=== PATIENT | male | born 1945 | race Hispanic/Latino ===

== ENCOUNTER 2018-04-13 09:22 | Emergency (ER) | payer OTHER ==
--- OUTSIDE RECORDS SUMMARY | 2018-04-13 09:24 | XMS REPORT | Clinical Summary ---
:1945 Author Organization [facility] Address [address] [place] [address] Care Team Providers Name Role Phone Malou Aragon MD Primary Care Provider Allergies Active Allergy Reactions Severity Noted Date Comments Latex Dermatitis, Itching, Rash Low Medications Medication Sig Dispensed Refills Start Date End Date Status clopidogrel (PLAVIX) Take 75 mg by 0 Active 75 mg tablet mouth daily. carvedilol (COREG) Take 1 tablet 0 Active 12.5 MG tablet by mouth daily. irbesartan (AVAPRO) Take 1 tablet 0 01/15/2018 Active 75 MG tablet by mouth daily. simvastatin (ZOCOR) Take 40 mg by 0 Active 40 MG tablet mouth daily. omega-3 fatty Take 1 capsule 0 Active acids-epa 1 gram by mouth 2 capsule (two) times a day. ferrous sulfate 325 Take 325 mg by 0 Active (65 FE) MG tablet mouth daily. cyanocobalamin Take 1 tablet 0 Active (cyanocobalmin) 100 by mouth MCG tablet daily. levothyroxine Take 1 tablet 0 Active (SYNTHROID, LEVOXYL) by mouth 88 mcg tablet daily. aspirin (ECOTRIN) 81 Take 81 mg by 0 Active MG enteric coated mouth daily. tablet pantoprazole Take 1 tablet 90 tablet 0 02/10/2018 Active (PROTONIX) 40 MG EC (40 mg total) tabletIndications: by mouth GERD with daily. esophagitis diclofenac sodium 3 Apply 1-2 100 g 1 02/20/2018 Active % gel grams to affected areas two times daily diclofenac sodium 3 Apply 1-2 100 g 1 02/20/2018 Discontinued % gel grams to 8 affected areas two times daily Active Problems No known active problems Encounters Date Type Specialty Care Team Description 03/24/2018 Office Visit Family Medicine Malou Aragon Essential hypertension (Primary Dx); MD Deepa Chronic kidney disease (CKD) stage G3b/A1, moderately decreased glomerular filtration rate (GFR) between 30-44 mL/min/1.73 square meter and albuminuria creatinine ratio less than 30 mg/g (HCC); Hyperuricemia; Acquired hypothyroidism; Screening for colon cancer; Urinary hesitancy; Hyperglycemia; At high risk for osteoporosis 02/10/2018 Office Visit Family Medicine Malou Aragon Coronary artery disease due to lipid rich plaque (Primary Dx); MD Deepa Essential hypertension; Dyslipidemia (high LDL; low HDL); Acquired hypothyroidism; CKD (chronic kidney disease) stage 3, GFR 30-59 ml/min (HCC); GERD with esophagitis; Primary osteoarthritis of left knee after 04/12/2017 Family History Medical History Relation Name Comments Stroke Brother Heart disease Father Stroke Father Heart disease Mother Kidney disease Sister Relation Name Status Comments Brother Father Mother Sister Social History Tobacco Use Types Packs/Day Years Used Date Former Smoker 1 10 Smokeless Tobacco: Never Used Comments: stopped 30 years ago Alcohol Use Drinks/Week oz/Week Comments No Sex Assigned at Date Recorded Not on file Job Start Date Occupation Industry Not on file Not on file Not on file Travel History Travel Start Travel End No recent travel history available. Last Filed Vital Signs Vital Sign Reading Time Taken Blood Pressure 160/71 03/24/2018 9:48 AM [employer] Pulse 61 03/24/2018 9:48 AM [employer] Temperature 36.6 C (97.9 F) 03/24/2018 9:48 AM [employer] Respiratory Rate - - Oxygen Saturation 96% 03/24/2018 9:48 AM [employer] Inhaled Oxygen Concentration - - Weight 82.7 kg (182 lb 4.8 oz) 03/24/2018 9:48 AM [employer] Height 154.9 cm (5' 1") 03/24/2018 9:48 AM [employer] Body Mass Index 34.45 03/24/2018 9:48 AM [employer] Plan of Treatment Date Type Specialty Care Team Description 04/18/2018 Appointment Radiology Malou Aragon MD [address] [place] [address] [id number] 06/23/2018 Office Visit Family Medicine Malou Aragon MD [address] [place] [phone] Health Maintenance Due Date Last Done Comments SHINGLES VACCINES (1 of 2) 1995 COLON CANCER SCREENING 02/11/2028 Postponed from 1995 (Patient Refused) PNEUMOCOCCAL POLYSACCHARIDE Completed 02/21/2016 VACCINE AGE 65 AND OVER INFLUENZA VACCINE Completed 01/25/2018 PNEUMOCOCCAL-13 Completed 01/25/2018 Procedures Procedure Name Priority Date/Time Associated Diagnosis Comments HEMOGLOBIN A1C Routine 03/24/2018 10:59 Hyperglycemia Results for this AM [employer] procedure are in the results section. TSH REFLEX TO T4F Routine 03/24/2018 10:59 Acquired Results for this AM [employer] hypothyroidism procedure are in the results section. PSA, TOTAL WITH Routine 03/24/2018 10:59 Urinary hesitancy Results for this REFLEX TO FREE AM [employer] procedure are in the results section. after 04/12/2017 Results TSH reflex to T4 (03/24/2018 10:59 AM [employer]) TSH reflex to FT4 1.80 0.40 - 4.50 mIU/L [facility] [place] Specimen Blood Narrative Performed At FASTING:NO QUEST FASTING: NO Resulting Agency Comment Performing Organization Information: Site ID: [id number] Name[facility] Address: [address] [place] [address] Director: Sunshine Irizarry Performing Organization Address City/State/Zipcode Phone Number [employer] [place] [phone] PSA, total with reflex to free (03/24/2018 10:59 AM [employer]) PSA 1.0 < OR=4.0 ng/mL [facility] Comment: The Total PSA value from this assay system is standardized against the equimolar PSA standard. The test result will be approximately 20% higher when compared to the WHO-standardized Total PSA (Siemens assay). Comparison of serial PSA results should be interpreted with this fact in mind. PSA was performed using the Deirdre Pavan Immunoassay method. Values obtained from different assay methods cannot be used interchangeably. PSA levels, regardless of value, should not be interpreted as absolute evidence of the presence or absence of disease. Specimen Blood Narrative Performed At FASTING:NO QUEST FASTING: NO Resulting Agency Comment Performing Organization Information: Site ID: [id number] Name: [facility] Address: [address] [place] [address] Director: Dr. Jonathan Alcantar Performing Organization Address City/[facility]/Zipcode Phone Number TH[facility] [address] [address] Hemoglobin A1c (03/24/2018 10:59 AM [employer]) Hemoglobin A1C 7.2 (H) <5.7 % of total [facility] Comment: [facility] [place] For someone without known diabetes, a hemoglobin A1c value of 6.5% or greater indicates that they may have diabetes and this should be confirmed with a follow-up test. For someone with known diabetes, a value <7% indicates that their diabetes is well controlled and a value greater than or equal to 7% indicates suboptimal control. A1c targets should be individualized based on duration of diabetes, age, comorbid conditions, and other considerations. Currently, no consensus exists regarding use of hemoglobin A1c for diagnosis of diabetes for children. Specimen Blood Narrative Performed At FASTING:NO QUEST FASTING: NO Resulting Agency Comment Performing Organization Information: Site ID: [id number] Name: [facility] Address: [address] [place] [address] Director: Sunshine Irizarry Performing Organization Address City/[facility]/Zipcode Phone Number [employer] [place] [address] [place] [address] after 04/12/2017 Insurance Payer Benefit Plan / Group Subscriber ID Type Phone Address AETNA MEDICARE AETNA MEDICARE HMO/PPO [facility] [address] (Home) [address] [place] [id number] Advance Directives Patient has advance care planning documents on file. For more information, please contact:[place] [address]
[2018-04-13] MEDS ORDERED: HYDROCODONE/APAP 7.5/325 MG TAB ONE (09:52)
--- NOTE | 2018-04-13 10:40 | EDPHYS ---
Physician Documentation [facility] Name: Murray Matos Jr Age: 72 yrs Sex: Male : 1945 Arrival Date: 04/13/2018 Time: 09:25 Bed 5 Private MD: out of town, doctor ED Physician Franklin Villafana HPI: 04/13 09:45 This 72 yrs old Male presents to ER via Ambulatory with complaints of Wrist cp Pain. 09:45 The patient or guardian reports pain, swelling, tenderness. The complaints affect the cp right wrist diffusely. 09:45 Context: resulted from an unknown cause. cp 09:45 Onset: The symptoms/episode began/occurred 3 day(s) ago. cp 09:45 Associated signs and symptoms: Pertinent negatives: cyanosis distally, decreased cp sensation distally, fever, injury. yes, reports xrays were taken and he was given steroids and pain medications. Patient reports history of gout. Historical: - Allergies: 09:29 Latex, Natural Rubber; la1 - Home Meds: 09:50 aspirin 81 mg Oral tab [Active]; carvedilol 12.5 mg Oral tab [Active]; clopidogrel 75 hj mg Oral tab [Active]; ferrous sulfate 325 mg (65 mg iron) Oral tab [Active]; irbesartan 300 mg Oral tab [Active]; Lasix 40 mg Oral tab [Active]; levothyroxine 88 mcg tab [Active]; Gifford-3 Oral [Active]; simvastatin 40 mg Oral tab [Active]; Vitamin B-12 1,000 mcg Oral tab [Active]; - PMHx: 09:29 Arthritis; heart attack; Hyperlipidemia; Hypertension; Hypothyroidism; iron deficiency; la1 Renal Disease; - PSHx: 09:50 CABG; Cholecystectomy; Knee surgery; hj - Immunization history:: Adult Immunizations up to date. - Social history:: Smoking status: Patient/guardian denies using tobacco. - Ebola Screening: : No symptoms or risks identified at this time. ROS: 09:50 Constitutional: Negative for body aches, chills, fever, poor PO intake. cp 09:50 Eyes: Negative for injury, pain, redness, and discharge. cp 09:50 ENT: Negative for drainage from ear(s), ear pain, sore throat, difficulty swallowing, difficulty handling secretions. 09:50 Cardiovascular: Negative for chest pain, palpitations. 09:50 Respiratory: Negative for cough, shortness of breath, wheezing. 09:50 Abdomen/GI: Negative for abdominal pain, nausea, vomiting, and diarrhea. 09:50 MS/extremity: Positive for pain, swelling, tenderness, of the right wrist, Negative for decreased range of motion, deformity, paresthesias. 09:50 Skin: Negative for cellulitis, erythema, rash. 09:50 All other systems are negative. Exam: 09:57 Constitutional: The patient appears in no acute distress, alert, awake, cp non-diaphoretic, non-toxic, well developed, well nourished. 09:57 Head/Face: Normocephalic, atraumatic. cp 09:57 Eyes: Periorbital structures: appear normal, Conjunctiva: normal, no exudate, no injection, Lids and lashes: appear normal, bilaterally. 09:57 ENT: External ear(s): are unremarkable, Nose: is normal, Mouth: Lips: moist, Oral mucosa: moist, Posterior pharynx: Airway: no evidence of obstruction, patent. 09:57 Chest/axilla: Inspection: normal. 09:57 Cardiovascular: Rate: normal. 09:57 Respiratory: the patient does not display signs of respiratory distress, Respirations: normal, no use of accessory muscles, no retractions, no splinting, no tachypnea. 09:57 Musculoskeletal/extremity: Extremities: grossly normal except: noted in the right wrist and dorsum of right hand: pain, swelling, tenderness, There is no evidence of deformity, ROM: limited passive range of motion due to pain, in the right wrist, Perfusion: the extremity is normally perfused throughout, Sensation intact. 09:57 Skin: cellulitis, is not appreciated, no rash present. Vital Signs: 09:30 Pulse 75; Resp 18; Temp 98.4; Pulse Ox 96% on R/A; Weight 81.19 kg; Height 5 ft. 2 in. la1 (157.48 cm); 09:31 BP 167 / 77; la1 10:44 BP 165 / 78; Pulse 76; Resp 18; Pulse Ox 97% on R/A; hj 09:30 Body Mass Index 32.74 (81.19 kg, 157.48 cm) la1 MDM: 09:32 Patient medically screened. cp 09:40 Differential diagnosis: closed fracture, cellulitis, gouty arthritis. cp 10:40 Data reviewed: vital signs, nurses notes, radiologic studies, plain films. cp 10:40 Test interpretation: by ED physician or midlevel provider: plain radiologic studies. 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 Response to treatment: the patient's symptoms have markedly improved after treatment, and as a result, I will discharge patient. 04/13 09:40 Order name: XRAY Wrist RIGHT 3 view cp Administered Medications: 09:40 Drug: Hydrocodone-Acetaminophen (7.5 mg-325 mg) 1 tabs Route: PO; hj 10:44 Follow up: Response: No adverse reaction; Pain is decreased hj Disposition: 04/13/18 10:40 Discharged to Home. Impression: Pain in right wrist. - Condition is Stable. - Discharge Instructions: Wrist Pain. - Prescriptions for Tylenol- Codeine #3 300-30 mg Oral Tablet - take 2 tablets by ORAL route every 6 hours As needed; 20 tablet. Medrol (Nick) 4 mg Oral Tablets, Dose Pack - take 1 tablet by ORAL route as directed - follow package instructions; 1 packet. - Medication Reconciliation Form, Thank You Letter, Antibiotic Education, Prescription Opioid Use form. - Follow up: Private Physician; When: 2 - 3 days; Reason: Recheck today's complaints. - Problem is new. - Symptoms have improved. Addendum: 04/24/2018 15:24 Co-signature as Attending Physician, Franklin Villafana MD Available for consultation at p s1 all times. . Signatures: Dispatcher [employer] EDMS Roman Chmabers RN RN la1 Boni Carmen RN RN hj Giovanni Saunders PA PA cp Singer, Phillip, MD MD ps1 Corrections: (The following items were deleted from the chart) 04/13 10:47 10:40 04/13/2018 10:40 Discharged to Home. Impression: Pain in right wrist. Condition hj is Stable. Forms are Medication Reconciliation Form, Thank You Letter, Antibiotic Education, Prescription Opioid Use. Follow up: Private Physician; When: 2 - 3 days; Reason: Recheck today's complaints. Problem is new. Symptoms have improved. cp
--- NOTE | 2018-04-13 10:40 | ER ---
Nurse's Notes [facility] Name: Murray Matos Jr Age: 72 yrs Sex: Male : 1945 Arrival Date: 04/13/2018 Time: 09:25 Bed 5 Private MD: out of town, doctor Diagnosis: Pain in right wrist Presentation: 04/13 09:27 Presenting complaint: Patient states: right wrist is swollen and painful, has been like la1 this for about 3 days. This happened before and they did an xray and they gave him some steroids and they helped. Transition of care: patient was not received from another setting of care. Onset of symptoms was April 13, 2018. Risk Assessment: Do you want to hurt yourself or someone else? Patient reports no desire to harm self or others. Initial Sepsis Screen: Does the patient meet any 2 criteria? No. Patient's initial sepsis screen is negative. Does the patient have a suspected source of infection? No. Patient's initial sepsis screen is negative. Care prior to arrival: None. 09:27 Method Of Arrival: Ambulatory la1 09:27 Acuity: WALDEMAR 4 la1 Triage Assessment: 09:46 General: Appears in no apparent distress. uncomfortable, Behavior is calm, cooperative, hj appropriate for age. Pain: Complains of pain in R wrist. Historical: - Allergies: 09:29 Latex, Natural Rubber; la1 - Home Meds: 09:50 aspirin 81 mg Oral tab [Active]; carvedilol 12.5 mg Oral tab [Active]; clopidogrel 75 hj mg Oral tab [Active]; ferrous sulfate 325 mg (65 mg iron) Oral tab [Active]; irbesartan 300 mg Oral tab [Active]; Lasix 40 mg Oral tab [Active]; levothyroxine 88 mcg tab [Active]; Mcgrath-3 Oral [Active]; simvastatin 40 mg Oral tab [Active]; Vitamin B-12 1,000 mcg Oral tab [Active]; - PMHx: 09:29 Arthritis; heart attack; Hyperlipidemia; Hypertension; Hypothyroidism; iron deficiency; la1 Renal Disease; - PSHx: 09:50 CABG; Cholecystectomy; Knee surgery; hj - Immunization history:: Adult Immunizations up to date. - Social history:: Smoking status: Patient/guardian denies using tobacco. - Ebola Screening: : No symptoms or risks identified at this time. Screenin:46 Abuse screen: Denies threats or abuse. Denies injuries from another. Nutritional hj screening: No deficits noted. Tuberculosis screening: No symptoms or risk factors identified. Fall Risk None identified. Assessment: 09:48 General: Appears in no apparent distress. uncomfortable, Behavior is calm, cooperative, hj appropriate for age. Pain: Complains of pain in R wrist. Neuro: Level of Consciousness is awake, alert, obeys commands, Oriented to person, place, time, situation, Appropriate for age. Cardiovascular: Capillary refill < 3 seconds Patient's skin is warm and dry. Respiratory: Airway is patent Respiratory effort is even, unlabored, Respiratory pattern is regular, symmetrical. GI: No signs and/or symptoms were reported involving the gastrointestinal system. : No signs and/or symptoms were reported regarding the genitourinary system. EENT: No signs and/or symptoms were reported regarding the EENT system. Derm: No signs and/or symptoms reported regarding the dermatologic system. Musculoskeletal: Reports pain in R wrist. Vital Signs: 09:30 Pulse 75; Resp 18; Temp 98.4; Pulse Ox 96% on R/A; Weight 81.19 kg; Height 5 ft. 2 in. la1 (157.48 cm); 09:31 BP 167 / 77; la1 10:44 BP 165 / 78; Pulse 76; Resp 18; Pulse Ox 97% on R/A; hj 09:30 Body Mass Index 32.74 (81.19 kg, 157.48 cm) la1 ED Course: 09:25 Patient arrived in ED. mr 09:26 out of town, doctor is Private Physician. mr 09:29 Triage completed. la1 09:29 Arm band placed on left wrist. la1 09:32 Giovanni Saunders PA is PHCP. cp 09:32 Franklin Villafana MD is Attending Physician. cp 09:37 Boni Carmen RN is Primary Nurse. hj 09:47 Patient has correct armband on for positive identification. Placed in gown. Bed in low hj position. Call light in reach. Side rails up X 1. 09:47 Bladder scan completed. prevoid- 219; voided- 200;. hj 09:51 X-ray completed. Portable x-ray completed in exam room. Patient tolerated procedure sg4 well. 09:54 XRAY Wrist RIGHT 3 view In Process Unspecified. EDMS 10:44 No provider procedures requiring assistance completed. Patient did not have IV access hj during this emergency room visit. Administered Medications: 09:40 Drug: Hydrocodone-Acetaminophen (7.5 mg-325 mg) 1 tabs Route: PO; hj 10:44 Follow up: Response: No adverse reaction; Pain is decreased hj Outcome: 10:40 Discharge ordered by . neida 10:45 Discharged to home ambulatory, with family. hj 10:45 Condition: stable 10:45 Discharge instructions given to patient, family, Instructed on discharge instructions, follow up and referral plans. medication usage, Demonstrated understanding of instructions, follow-up care, medications, Prescriptions given X 2. 10:47 Patient left the ED. Signatures: Dispatcher [employer] EDIL GarciaKayli ReyesRoman, RN RN la1 Boni Carmen RN RN Giovanni Quiñonez, Fanny May cp sg4
--- NOTE | 2018-04-13 12:10 | RAD REPORT ---
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 The radiocarpal joint and first carpometacarpal joint are most involved. Mild soft tissue swelling is seen. Vascular calcifica tion evident.
== END 2018-04-13 10:47 | disposition home or self-care (01) ==
LOC: ER 09:22
DX: M25.531 Pain in right wrist (principal); M19.031 Primary osteoarthritis, right wrist; M18.11 Unilateral primary osteoarthritis of first carpometacarpal joint, right hand; E78.5 Hyperlipidemia, unspecified; I10 Essential (primary) hypertension; E03.9 Hypothyroidism, unspecified; D50.9 Iron deficiency anemia, unspecified; Z79.82 Long term (current) use of aspirin; Z79.899 Other long term (current) drug therapy
CPT/HCPCS: 99283

== ENCOUNTER 2018-09-24 21:08 | Emergency (ER) | payer OTHER ==
--- NOTE | 2018-09-24 22:45 | ER ---
Nurse's Notes [facility] Name: Murray Matos Jr Age: 73 yrs Sex: Male : 1945 Arrival Date: 09/24/2018 Time: 21:10 Bed 27 Private MD: out of town, doctor Diagnosis: Laceration without foreign body of left index finger without damage to nail Presentation: 09/24 21:23 Presenting complaint: Patient states: I was working on my truck and a piece of metal ed1 slipped and cut my finger. Transition of care: patient was not received from another setting of care. Onset of symptoms was September 24, 2018. Risk Assessment: Do you want to hurt yourself or someone else? Patient reports no desire to harm self or others. Initial Sepsis Screen: Does the patient meet any 2 criteria? No. Patient's initial sepsis screen is negative. Does the patient have a suspected source of infection? No. Patient's initial sepsis screen is negative. Care prior to arrival: None. 21:23 Method Of Arrival: Ambulatory ed1 21:23 Acuity: WALDEMAR 4 ed1 Triage Assessment: 21:26 General: Appears in no apparent distress. Behavior is calm, cooperative. Pain: Denies ed1 pain. Injury Description: Laceration sustained to dorsal aspect of proximal phalanx of left index finger. Historical: - Allergies: 21:26 Latex, Natural Rubber; ed1 - Home Meds: 21:26 clopidogrel 75 mg Oral tab 1 tab once daily [Active]; carvedilol 12.5 mg Oral tab 1 tab ed1 2 times per day [Active]; valsartan 160 mg oral tab 1 tab once daily [Active]; aspirin 81 mg Oral tab 1 tab once daily [Active]; simvastatin 40 mg Oral tab 1 tab once daily [Active]; [place]-3 Oral twice a day [Active]; ferrous sulfate 325 mg (65 mg iron) Oral tab daily [Active]; levothyroxine 88 mcg tab 1 tab once daily [Active]; Vitamin B-12 1,000 mcg Oral tab daily [Active]; Trulicity 1.5 mg/0.5 mL subcutaneous pnij 0.5 mL once wkly [Active]; - PMHx: 21:26 Arthritis; heart attack; Hyperlipidemia; Hypertension; Hypothyroidism; iron deficiency; ed1 Renal Disease; - PSHx: 21:26 CABG; Cholecystectomy; Knee surgery; Cataract; ed1 - Immunization history:: Adult Immunizations up to date, Last tetanus immunization: up to date. - Social history:: Smoking status: Patient/guardian denies using tobacco. - Ebola Screening: : Patient negative for fever greater than or equal to 101.5 degrees Fahrenheit, and additional compatible Ebola Virus Disease symptoms Patient denies exposure to infectious person Patient denies travel to an Ebola-affected area in the 21 days before illness onset No symptoms or risks identified at this time. Screenin:26 Abuse screen: Denies threats or abuse. Denies injuries from another. Nutritional mg2 screening: No deficits noted. Tuberculosis screening: No symptoms or risk factors identified. Fall Risk None identified. Assessment: 22:27 General: Appears in no apparent distress. comfortable, Behavior is calm, cooperative. mg2 Pain: Complains of pain in left hand. Neuro: Level of Consciousness is awake, alert, obeys commands, Oriented to person, place, time, situation. Cardiovascular: No deficits noted. Respiratory: Airway is patent Respiratory effort is even, unlabored, Respiratory pattern is regular, symmetrical. GI: No deficits noted. : No deficits noted. EENT: No deficits noted. Derm: Wound noted dorsal aspect of proximal phalanx of left index finger. Musculoskeletal: Circulation, motion, and sensation intact. Capillary refill < 3 seconds. Injury Description: Laceration sustained to dorsal aspect of proximal phalanx of left index finger is clean, 0.5 to 2.5 cm long, not bleeding, was sustained 6-12 hours ago. no active bleeding noted at this time. Vital Signs: 21:26 BP 165 / 83; Pulse 62; Resp 18; Temp 97.6; Pulse Ox 96% on R/A; Weight 79.38 kg; Height ed1 5 ft. 1 in. (154.94 cm); Pain 0/10; 22:58 BP 140 / 78; Pulse 65; Resp 18; Temp 98; Pulse Ox 100% on R/A; Pain 0/10; mg2 21:26 Body Mass Index 33.07 (79.38 kg, 154.94 cm) ed1 ED Course: 21:10 Patient arrived in ED. mr 21:11 out of town, doctor is Private Physician. mr 21:23 Triage completed. ed1 21:26 Arm band placed on right wrist. ed1 21:32 Noemi Reddy FNP-C is [facility]. kb 21:32 Facundo Stoner MD is Attending Physician. kb 21:35 Stefano Lamb, RN is Primary Nurse. mg2 22:27 Patient did not have IV access during this emergency room visit. mg2 22:29 Patient has correct armband on for positive identification. mg2 22:57 Assist provider with laceration repair on dorsal aspect of proximal phalanx of left mg2 index finger that was 2.5 cm. or less using 3 stitces done under local anesthesia. Set up tray. Performed by Noemi GOLDMAN Dressed with Neosporin, Patient tolerated well. Administered Medications: 22:50 Drug: Lidocaine (1 %) 1 vials {Note: given by the provider. .} Volume: 5 ml; Route: mg2 Infiltration; 22:50 Follow up: Response: No adverse reaction mg2 Outcome: 22:45 Discharge ordered by MD. kb 22:58 Discharged to home ambulatory, with family. mg2 22:58 Condition: stable 22:58 Discharge instructions given to patient, family, Instructed on discharge instructions, follow up and referral plans. wound care, Demonstrated understanding of instructions, follow-up care, wound care. 22:59 Patient left the ED. mg2 Signatures: Noemi Reddy FNP-C PARAPROFESSIONAL AIDE-Irma Kayli GarciaCarie, RN RN ed1 Stefano Lamb, RN RN mg2
--- NOTE | 2018-09-24 22:46 | EDPHYS ---
Physician Documentation [facility] Name: Murray Matos Jr Age: 73 yrs Sex: Male : 1945 Arrival Date: 09/24/2018 Time: 21:10 Bed 27 Private MD: out of town, doctor ED Physician Facundo Stoner HPI: 09/24 22:33 This 73 yrs old Male presents to ER via Ambulatory with complaints of Finger kb laceration. 22:33 The patient has a laceration related to: working on a car occurred at home, and there kb are no complicating factors. The injury was accidental. The laceration(s) is(are) located on the dorsal aspect of proximal phalanx of left index finger. Onset: The symptoms/episode began/occurred today, at 16:30. Associated signs and symptoms: The patient has no apparent associated signs or symptoms. The patient has not experienced similar symptoms in the past. The patient has not recently seen a physician. Historical: - Allergies: 21:26 Latex, Natural Rubber; ed1 - Home Meds: 21:26 clopidogrel 75 mg Oral tab 1 tab once daily [Active]; carvedilol 12.5 mg Oral tab 1 tab ed1 2 times per day [Active]; valsartan 160 mg oral tab 1 tab once daily [Active]; aspirin 81 mg Oral tab 1 tab once daily [Active]; simvastatin 40 mg Oral tab 1 tab once daily [Active]; [place]-3 Oral twice a day [Active]; ferrous sulfate 325 mg (65 mg iron) Oral tab daily [Active]; levothyroxine 88 mcg tab 1 tab once daily [Active]; Vitamin B-12 1,000 mcg Oral tab daily [Active]; Trulicity 1.5 mg/0.5 mL subcutaneous pnij 0.5 mL once wkly [Active]; - PMHx: 21:26 Arthritis; heart attack; Hyperlipidemia; Hypertension; Hypothyroidism; iron deficiency; ed1 Renal Disease; - PSHx: 21:26 CABG; Cholecystectomy; Knee surgery; Cataract; ed1 - Immunization history:: Adult Immunizations up to date, Last tetanus immunization: up to date. - Social history:: Smoking status: Patient/guardian denies using tobacco. - Ebola Screening: : Patient negative for fever greater than or equal to 101.5 degrees Fahrenheit, and additional compatible Ebola Virus Disease symptoms Patient denies exposure to infectious person Patient denies travel to an Ebola-affected area in the 21 days before illness onset No symptoms or risks identified at this time. ROS: 22:32 Constitutional: Negative for fever, chills, and weight loss, ENT: Negative for injury, kb pain, and discharge, Neck: Negative for injury, pain, and swelling, Cardiovascular: Negative for chest pain, palpitations, and edema, Respiratory: Negative for shortness of breath, cough, wheezing, and pleuritic chest pain, Abdomen/GI: Negative for abdominal pain, nausea, vomiting, diarrhea, and constipation, MS/Extremity: Negative for injury and deformity, Neuro: Negative for headache, weakness, numbness, tingling, and seizure. 22:32 Skin: Positive for laceration(s), of the dorsal aspect of proximal phalanx of left index finger. Exam: 22:32 Constitutional: This is a well developed, well nourished patient who is awake, alert, kb and in no acute distress. Head/Face: Normocephalic, atraumatic. Chest/axilla: Normal chest wall appearance and motion. Nontender with no deformity. No lesions are appreciated. Cardiovascular: Regular rate and rhythm with a normal S1 and S2. No gallops, murmurs, or rubs. Normal PMI, no JVD. No pulse deficits. Respiratory: Lungs have equal breath sounds bilaterally, clear to auscultation and percussion. No rales, rhonchi or wheezes noted. No increased work of breathing, no retractions or nasal flaring. Abdomen/GI: Soft, non-tender, with normal bowel sounds. No distension or tympany. No guarding or rebound. No evidence of tenderness throughout. MS/ Extremity: Pulses equal, no cyanosis. Neurovascular intact. Full, normal range of motion. Neuro: Awake and alert, GCS 15, oriented to person, place, time, and situation. Cranial nerves II-XII grossly intact. Motor strength 5/5 in all extremities. Sensory grossly intact. Cerebellar exam normal. Normal gait. 22:32 Skin: injury, laceration(s), the wound is approximately 1.5 cm(s), of the dorsal aspect of proximal phalanx of left index finger, that can be described as clean, no foreign body, linear, without bleeding. Vital Signs: 21:26 BP 165 / 83; Pulse 62; Resp 18; Temp 97.6; Pulse Ox 96% on R/A; Weight 79.38 kg; Height ed1 5 ft. 1 in. (154.94 cm); Pain 0/10; 22:58 BP 140 / 78; Pulse 65; Resp 18; Temp 98; Pulse Ox 100% on R/A; Pain 0/10; mg2 21:26 Body Mass Index 33.07 (79.38 kg, 154.94 cm) ed1 Laceration: 22:45 Wound Repair of 1.5cm ( 0.6in ) subcutaneous laceration to dorsal aspect of proximal kb phalanx of left index finger. Linear shaped.. Distal neuro/vascular/tendon intact. Anesthesia: Wound infiltrated with 1 mls of 1% lidocaine. Wound prep: Extensive cleansing with hibiclenz by me, Wound irrigation with saline by me. Skin closed with 3 5-0 Prolene using interrupted sutures and sterile technique. Dressed with Neosporin, bandaid. Patient tolerated well. MDM: 21:32 Patient medically screened. kb 22:32 Data reviewed: vital signs, nurses notes. Data interpreted: Pulse oximetry: on room air kb is 96 %. Interpretation: normal. Counseling: I had a detailed discussion with the patient and/or guardian regarding: the historical points, exam findings, and any diagnostic results supporting the discharge/admit diagnosis, the need for outpatient follow up, a family practitioner, to return to the emergency department if symptoms worsen or persist or if there are any questions or concerns that arise at home. 09/24 22:31 Order name: Prolene, Sutures; Complete Time: 22:55 kb 09/24 22:31 Order name: Dressing - Wound; Complete Time: 22:55 kb 09/24 22:31 Order name: Gloves, Sterile; Complete Time: 22:56 kb 09/24 22:31 Order name: Setup Suture Tray; Complete Time: 22:56 kb Administered Medications: 22:50 Drug: Lidocaine (1 %) 1 vials {Note: given by the provider. .} Volume: 5 ml; Route: mg2 Infiltration; 22:50 Follow up: Response: No adverse reaction mg2 Disposition: 09/25 02:07 Co-signature as Attending Physician, Noemi Barry SOCK FOLDER-C I agree with the assessment tw4 and plan of care. Disposition: 09/24/18 22:45 Discharged to Home. Impression: Laceration without foreign body of left index finger without damage to nail. - Condition is Stable. - Discharge Instructions: Laceration Care, Adult, [id number]. - Medication Reconciliation Form, Thank You Letter, Antibiotic Education, Prescription Opioid Use form. - Follow up: Emergency Department; When: As needed; Reason: Worsening of condition. Follow up: Private Physician; When: 2 - 3 days; Reason: Recheck today's complaints, Continuance of care, Re-evaluation by your physician. Signatures: Noemi Reddy, ELIASC SOCK FOLDER-CkCarie Raines, RN RN ed1 Facundo Stoner MD MD tw4 Stefano Lamb RN RN mg2 Corrections: (The following items were deleted from the chart) 09/24 22:59 22:45 09/24/2018 22:45 Discharged to Home. Impression: Laceration without foreign body mg2 of left index finger without damage to nail. Condition is Stable. Forms are Medication Reconciliation Form, Thank You Letter, Antibiotic Education, Prescription Opioid Use. Follow up: Emergency Department; When: As needed; Reason: Worsening of condition. Follow up: Private Physician; When: 2 - 3 days; Reason: Recheck today's complaints, Continuance of care, Re-evaluation by your physician. kb
[2018-09-24] MEDS ORDERED: LIDOCAINE 1% MPF 5 ML VIAL ONE (22:51)
== END 2018-09-24 22:59 | disposition home or self-care (01) ==
LOC: ER 21:08
PROC: 0JQK0ZZ Repair Left Hand Subcutaneous Tissue and Fascia, Open Approach (ICD-10-PCS; principal; 2018-09-24)
DX: S61.211A Laceration without foreign body of left index finger without damage to nail, initial encounter (principal); W45.8XXA Other foreign body or object entering through skin, initial encounter; Y93.89 Activity, other specified; Y92.009 Unspecified place in unspecified non-institutional (private) residence as the place of occurrence of the external cause; Z79.82 Long term (current) use of aspirin; Z95.1 Presence of aortocoronary bypass graft; Z91.040 Latex allergy status; Z91.048 Other nonmedicinal substance allergy status; I10 Essential (primary) hypertension; E03.9 Hypothyroidism, unspecified; E78.5 Hyperlipidemia, unspecified
CPT/HCPCS: 99283

== ENCOUNTER 2018-10-04 17:31 | Emergency (ER) | payer OTHER ==
--- NOTE | 2018-10-04 18:08 | ER ---
Nurse's Notes [facility] Name: Murray Matos Jr Age: 73 yrs Sex: Male : 1945 Arrival Date: 10/04/2018 Time: 17:34 Bed Waiting Private MD: out of town, doctor Diagnosis: Encounter for removal of sutures Presentation: 10/04 17:35 Presenting complaint: Patient states: stitches to Right index finger, 10 days. la1 Transition of care: patient was not received from another setting of care. Onset of symptoms was October 04, 2018. Risk Assessment: Do you want to hurt yourself or someone else? Patient reports no desire to harm self or others. Initial Sepsis Screen: Does the patient meet any 2 criteria? No. Patient's initial sepsis screen is negative. Does the patient have a suspected source of infection? No. Patient's initial sepsis screen is negative. Care prior to arrival: None. 17:35 Method Of Arrival: Ambulatory la1 17:35 Acuity: WALDEMAR 5 la1 Historical: - Allergies: 17:36 Latex, Natural Rubber; la1 - PMHx: 17:36 Arthritis; heart attack; Hyperlipidemia; Hypertension; Hypothyroidism; iron deficiency; la1 Renal Disease; - Immunization history:: Adult Immunizations up to date. - Social history:: Smoking status: Patient/guardian denies using tobacco. - Ebola Screening: : No symptoms or risks identified at this time. Screenin:37 Abuse screen: Denies threats or abuse. Nutritional screening: No deficits noted. la1 Tuberculosis screening: No symptoms or risk factors identified. Fall Risk None identified. Assessment: 17:37 Reassessment: Three stitches to right index finger, wound well approximated without la1 redness, swelling, or drainage. 17:50 Reassessment: stitches removed, pt tolerated well, instructed on wound care and reasons la1 to F/U with PCP. Vital Signs: 17:36 BP 145 / 67; Pulse 70; Resp 16; Temp 98.0; Weight 79.38 kg; Height 5 ft. 1 in. (154.94 la1 cm); 17:36 Body Mass Index 33.07 (79.38 kg, 154.94 cm) la1 ED Course: 17:34 Patient arrived in ED. ag5 17:35 out of town, doctor is Private Physician. ag5 17:36 Triage completed. la1 17:36 Arm band placed on left wrist. la1 17:37 Call light in reach. la1 17:37 No provider procedures requiring assistance completed. Patient did not have IV access la1 during this emergency room visit. 17:56 Mari Ott FNP-C is [facility]. snw 17:56 Chance Mondragon MD is Attending Physician. snw Administered Medications: No medications were administered Outcome: 17:50 Discharged to home ambulatory. la1 17:50 Condition: stable 17:50 Discharge instructions given to patient, Instructed on discharge instructions, follow up and referral plans. Demonstrated understanding of instructions, follow-up care, wound care. 18:07 Discharge ordered by . snw 18:09 Patient left the ED. la1 Signatures: Mari Ott FNP-C FNP-Csnw Roman Chambers, RN RN la1 EwaChris ag5
--- NOTE | 2018-10-04 18:08 | EDPHYS ---
Physician Documentation [facility] Name: Murray Matso Jr Age: 73 yrs Sex: Male : 1945 Arrival Date: 10/04/2018 Time: 17:34 Bed Waiting Private MD: out of town, doctor ED Physician Chance Mondragon HPI: 10/04 18:06 This 73 yrs old Male presents to ER via Ambulatory with complaints of STITCHES snw REMOVAL. 18:06 The patient has sutures on the three to dorsal right index finger. Previous treatment: snw The patient was initially treated 10 day(s) ago. Sutures/dea progress: The patient has no c/o's. The wound is well-healing with no redness, swelling, discharge, or dehiscence reported. The patient has not experienced similar symptoms in the past. as noted post cutting finger on a piece of metal. Historical: - Allergies: 17:36 Latex, Natural Rubber; la1 - PMHx: 17:36 Arthritis; heart attack; Hyperlipidemia; Hypertension; Hypothyroidism; iron deficiency; la1 Renal Disease; - Immunization history:: Adult Immunizations up to date. - Social history:: Smoking status: Patient/guardian denies using tobacco. - Ebola Screening: : No symptoms or risks identified at this time. ROS: 18:05 Constitutional: Negative for fever, chills, and weight loss, Eyes: Negative for injury, snw pain, redness, and discharge, ENT: Negative for injury, pain, and discharge, Neck: Negative for injury, pain, and swelling, Cardiovascular: Negative for chest pain, palpitations, and edema, Respiratory: Negative for shortness of breath, cough, wheezing, and pleuritic chest pain, Abdomen/GI: Negative for abdominal pain, nausea, vomiting, diarrhea, and constipation, Back: Negative for injury and pain, : Negative for injury, bleeding, discharge, and swelling, MS/Extremity: Negative for injury and deformity, Neuro: Negative for headache, weakness, numbness, tingling, and seizure. 18:05 Skin: Positive for laceration(s), already repaired, sutures okay to be removed. Exam: 18:03 Constitutional: This is a well developed, well nourished patient who is awake, alert, snw and in no acute distress. Head/Face: Normocephalic, atraumatic. Eyes: Pupils equal round and reactive to light, extra-ocular motions intact. Lids and lashes normal. Conjunctiva and sclera are non-icteric and not injected. Cornea within normal limits. Periorbital areas with no swelling, redness, or edema. ENT: Nares patent. No nasal discharge, no septal abnormalities noted. Tympanic membranes are normal and external auditory canals are clear. Oropharynx with no redness, swelling, or masses, exudates, or evidence of obstruction, uvula midline. Mucous membranes moist. Neck: Trachea midline, no thyromegaly or masses palpated, and no cervical lymphadenopathy. Supple, full range of motion without nuchal rigidity, or vertebral point tenderness. No Meningismus. Chest/axilla: Normal chest wall appearance and motion. Nontender with no deformity. No lesions are appreciated. Cardiovascular: Regular rate and rhythm with a normal S1 and S2. No gallops, murmurs, or rubs. Normal PMI, no JVD. No pulse deficits. Respiratory: Lungs have equal breath sounds bilaterally, clear to auscultation and percussion. No rales, rhonchi or wheezes noted. No increased work of breathing, no retractions or nasal flaring. Abdomen/GI: Soft, non-tender, with normal bowel sounds. No distension or tympany. No guarding or rebound. No evidence of tenderness throughout. Back: No spinal tenderness. No costovertebral tenderness. Full range of motion. MS/ Extremity: Pulses equal, no cyanosis. Neurovascular intact. Full, normal range of motion. Neuro: Awake and alert, GCS 15, oriented to person, place, time, and situation. Cranial nerves II-XII grossly intact. Motor strength 5/5 in all extremities. Sensory grossly intact. Cerebellar exam normal. Normal gait. Psych: Awake, alert, with orientation to person, place and time. Behavior, mood, and affect are within normal limits. 18:03 Skin: Appearance: normal except for affected area, injury, laceration(s), already repaired with three sutures, area well approximated. No discharge. Vital Signs: 17:36 BP 145 / 67; Pulse 70; Resp 16; Temp 98.0; Weight 79.38 kg; Height 5 ft. 1 in. (154.94 la1 cm); 17:36 Body Mass Index 33.07 (79.38 kg, 154.94 cm) la1 MDM: 18:01 Patient medically screened. snw 18:07 Data reviewed: vital signs, nurses notes. Counseling: I had a detailed discussion with snw the patient and/or guardian regarding: the historical points, exam findings, and any diagnostic results supporting the discharge/admit diagnosis. Counseling: I had a detailed discussion with the patient and/or guardian regarding: the need for outpatient follow up, to return to the emergency department if symptoms worsen or persist or if there are any questions or concerns that arise at home. Special discussion: Based on the history and exam findings, there is no indication for further emergent testing or inpatient evaluation. I discussed with the patient/guardian the need to see the primary care provider for further evaluation of the symptoms. Administered Medications: No medications were administered Disposition: 10/05 12:51 Co-signature as Attending Physician, Chance Mondragon MD. Disposition: 10/04/18 18:07 Discharged to Home. Impression: Encounter for removal of sutures. - Condition is Stable. - Follow up: Private Physician; When: As needed; Reason: Worsening of condition. Signatures: Mari Ott, CLINICAL PROVIDER TRAINER-C CLINICAL PROVIDER TRAINER-Csnw Roman Chambers RN RN la1 Chance Mondragon MD MD Corrections: (The following items were deleted from the chart) 10/04 18:09 18:07 10/04/2018 18:07 Discharged to Home. Impression: Encounter for removal of la1 sutures. Condition is Stable. Forms are Medication Reconciliation Form, Thank You Letter, Antibiotic Education, Prescription Opioid Use. Follow up: Private Physician; When: As needed; Reason: Worsening of condition. snw
== END 2018-10-04 18:09 | disposition home or self-care (01) ==
LOC: ER 17:31
DX: Z48.02 Encounter for removal of sutures (principal); E78.5 Hyperlipidemia, unspecified; I10 Essential (primary) hypertension; E03.9 Hypothyroidism, unspecified; N28.9 Disorder of kidney and ureter, unspecified; Z91.040 Latex allergy status
CPT/HCPCS: 99281

== ENCOUNTER 2023-03-23 19:38 | Inpatient (IN) | payer OTHER ==
[2023-03-23 20:24] LABS: Absolute Lymphocytes (CBC) 1.1 K/uL (0.7-4.9); Hematocrit 38.5 % (39.6-49.0); MCV 93.2 fL (80-100); MPV 8.9 fL (7.6-11.3); Platelets 102 thou/uL (152-406); RBC Red Blood Cell Count 4.13 M/uL (4.33-5.43)
[2023-03-23 20:43] LABS: Albumin 3.6 g/dL (3.4-5.0); Bilirubin Direct 0.4 mg/dL (0-0.2); Bilirubin Indirect, Calculated 0.9 mg/dL (0.2-0.8); Bilirubin Total 1.3 mg/dL (0.2-1.0); Magnesium 2.3 mg/dL (1.6-2.4); Protein, Total 7.6 g/dL (6.4-8.2); Troponin High Sensitivity 22.6 pg/mL (<58.9)
--- NOTE | 2023-03-23 20:50 | RAD REPORT ---
EXAM DESCRIPTION: RAD - Chest Single View - 03/23/2023 8:43 pm CLINICAL HISTORY: COUGH Chest pain. COMPARISON: <Comparisons> FINDINGS: Portable technique limits examination quality. Mild pulmonary edema is seen. The heart is moderately prominent. Sternotomy wires.Dual lead pacer/def ibrillator device. IMPRESSION: Mild CHF pattern.
--- NOTE | 2023-03-23 21:15 | EDPHYS ---
Physician Documentation [facility] Name: Murray Matos Jr Age: 77 yrs Sex: Male : 1945 Arrival Date: 03/23/2023 Time: 19:38 Bed 7 Private MD: ED Physician Ryan Gary HPI: 03/23 19:55 This 77 yrs old Male presents to ER via Ambulatory with complaints of ms3 Breathing Difficulty, Cough, Swelling of Lower Extremity, Pt has h/o CHF. 19:55 77-year-old male with past medical history of arthritis, hypothyroidism, hypertension, ms3 hyperlipidemia, diabetes, coronary artery disease, chronic kidney disease presents to the emergency department for cough that began on Saturday. Patient was seen at [facility] urgent care where a flu and COVID test returned negative. Patient notes he developed lower extremity swelling that began on . Patient denies pain at this time. Patient denies nausea, vomiting, chest pain, shortness of breath.. Historical: - Allergies: 19:52 Latex; cm10 - PMHx: 19:52 Arthritis; Hypothyroidism; iron deficiency; Hypertension; Hyperlipidemia; heart attack; cm10 Renal Disease; Congestive heart failure; Diabetes mellitus; Gout; CAD; - PSHx: 19:52 Coronary artery bypass graft; Defibrilator; cm10 - Immunization history:: Adult Immunizations up to date. - Social history:: Smoking status: Patient denies any tobacco usage or history of. ROS: 19:55 Abdomen/GI: Negative for abdominal pain, nausea, vomiting, diarrhea, and constipation, ms3 MS/Extremity: Negative for injury and deformity, Skin: Negative for injury, rash, and discoloration, 19:55 Constitutional: Negative for fever, and chills. Neck: Negative for injury, pain, and swelling, 19:55 Cardiovascular: Positive for edema, 19:55 Respiratory: Positive for cough, 19:55 All other systems are negative, Exam: 20:20 Constitutional: This is a well developed, well nourished patient who is awake, alert, ms3 and in no acute distress. Head/Face: Normocephalic, atraumatic. Chest/axilla: Normal chest wall appearance and motion. Nontender with no deformity. 20:20 Cardiovascular: Rate: normal, Rhythm: regular, Pulses: no pulse deficits are appreciated, Heart sounds: murmur, systolic, 20:20 ECG was reviewed by the Attending Physician. Vital Signs: 19:50 BP 138 / 82; Pulse 73; Resp 18; Temp 98.3(TE); Pulse Ox 100% on R/A; Weight 83.01 kg; cm10 Height 5 ft. 2 in. ; Pain 9/10; 20:20 BP 144 / 75; Pulse 71; Resp 20 S; Pulse Ox 97% on R/A; jw7 21:00 BP 152 / 71; Pulse 74; Resp 18 S; Pulse Ox 98% on R/A; jw7 22:15 BP 158 / 76; Pulse 71; Resp 17 S; Pulse Ox 100% on R/A; jw7 19:50 Body Mass Index 33.47 (83.01 kg, 157.48 cm) cm10 19:50 Pain Scale: Adult cm10 MDM: 19:55 Patient medically screened. ms3 19:55 Differential diagnosis: Bronchitis CHF exacerbation, Myocardial Infarction pneumonia, ms3 pulmonary edema. 21:53 Data reviewed: vital signs, nurses notes, lab test result(s), EKG, radiologic studies, ms3 and as a result, I will admit patient. Consideration of Admission/Observation Patient was admitted/placed on observation. Management of patient was discussed with the following: Hospitalist: Mari, nurse practitioner, on behalf of the hospitalist. I considered the following discharge prescriptions or medication management in the emergency department Medications were administered in the Emergency Department. See MAR. Independent interpretation of the following test(s) in the Emergency Department EKG: See my EKG interpretation above X-Ray: My interpretation is Chest x-ray image reviewed by me reveals implantable defibrillator with mild pulmonary edema.. Historians other than the Patient: Daughter/Son: Patient's daughter. Counseling: I had a detailed discussion with the patient and/or guardian regarding the historical points, exam findings, and any diagnostic results supporting the discharge/admit diagnosis, lab results, radiology results, the need for further work-up and treatment in the hospital. ED course: Discussed labs, chest x-ray findings, EKG with patient and his family. Patient agrees with observation. All questions were answered.. 03/23 19:55 Order name: Basic Metabolic Panel; Complete Time: 21:05 ms3 03/23 19:55 Order name: CBC with Diff; Complete Time: 21:05 ms3 03/23 19:55 Order name: LFT's; Complete Time: 21:05 ms3 03/23 19:55 Order name: Magnesium; Complete Time: 21:05 ms3 03/23 19:55 Order name: NT PRO-BNP; Complete Time: 21:05 ms3 03/23 19:55 Order name: Troponin HS; Complete Time: 21:05 ms3 03/23 22:08 Order name: NT PRO-BNP; Complete Time: 04:59 EDMS 03/23 22:08 Order name: Urinalysis w/ reflexes EDMS 03/23 22:08 Order name: CBC with Automated Diff EDMS 03/23 22:08 Order name: CBC with Automated Diff; Complete Time: 04:40 EDMS 03/23 22:08 Order name: Comprehensive Metabolic Panel EDMS 03/23 22:08 Order name: Comprehensive Metabolic Panel; Complete Time: 04:59 EDMS 03/23 22:08 Order name: Magnesium EDMS 03/23 22:08 Order name: Magnesium; Complete Time: 04:59 EDMS 03/23 22:08 Order name: Phosphorus EDMS 03/23 22:08 Order name: Phosphorus; Complete Time: 04:59 EDMS 03/23 22:08 Order name: Protime (+INR) EDMS 03/23 22:08 Order name: Protime (+INR); Complete Time: 04:40 EDMS 03/23 22:08 Order name: PTT, Activated Partial Thromb EDMS 03/23 22:08 Order name: PTT, Activated Partial Thromb; Complete Time: 04:40 EDMS 03/23 22:08 Order name: Troponin High Sensitivity EDMS 03/23 22:08 Order name: Troponin High Sensitivity; Complete Time: 04:59 EDMS 03/23 22:08 Order name: Troponin High Sensitivity EDMS 03/24 00:45 Order name: Urine W/Microscopic (UAM) lg3 03/24 01:26 Order name: Urinalysis W/Microscopic; Complete Time: 02:27 EDMS 03/24 05:02 Order name: SARS RAPID snw 03/24 05:02 Order name: Flu snw 03/24 05:58 Order name: SARS-COV-2 Antigen Rapid EDMS 03/24 06:17 Order name: Influenza Screen (A EDMS 03/23 19:55 Order name: XRAY Chest (1 view); Complete Time: 21:05 ms3 03/23 22:08 Order name: Echo with Doppler EDMS 03/23 22:08 Order name: Chest Pa And Lat (2 Views) EDMS 03/23 22:08 Order name: Chest Pa And Lat (2 Views) EDMS 03/23 22:11 Order name: Extrem Venous W Compress Darryl; Complete Time: 00:28 EDMS 03/23 22:11 Order name: Renal Ultrasound-Complete EDMS 03/23 22:43 Order name: US; Complete Time: 00:28 EDMS 03/23 19:55 Order name: EKG; Complete Time: 19:55 ms3 03/23 22:07 Order name: CONS Physician Consult EDMS 03/23 22:07 Order name: CONS Physician Consult EDMS 03/23 19:55 Order name: Cardiac monitoring; Complete Time: 20:26 ms3 03/23 19:55 Order name: EKG - Nurse/Tech; Complete Time: 20:11 ms3 03/23 19:55 Order name: IV Saline Lock; Complete Time: 20:11 ms3 03/23 19:55 Order name: Labs collected and sent; Complete Time: 20:11 ms3 03/23 19:55 Order name: O2 Per Protocol; Complete Time: 20:26 ms3 03/23 19:55 Order name: O2 Sat Monitoring; Complete Time: 20:26 ms3 EC:20 Rate is 73 beats/min. Rhythm is regular. QRS [place] is Normal. CT interval is normal. QRS ms3 interval is prolonged. Clinical impression: NSR w/ Non-specific ST/T Changes and LBBB. Administered Medications: 21:14 Drug: Furosemide IVP 40 mg IVP once; give over 2 minutes Route: IVP; Site: left jw7 antecubital; 03/24 00:04 Follow up: Response: No adverse reaction lg3 Disposition Summary: 03/23/23 21:14 Hospitalization Ordered Notes: Hospitalization Status: Observation ms3 Provider: Danna Thornton ms3 Condition: Stable ms3 Problem: new ms3 Symptoms: are unchanged ms3 Bed/Room Type: Standard ms3 Location: Telemetry/MedSurg (observation)(03/24/23 07:01) Room Assignment: 404(03/24/23 07:01) eb Diagnosis - Heart failure, unspecified ms3 - Chronic kidney disease, unspecified ms3 - Anemia, unspecified ms3 Forms: - Medication Reconciliation Form ms3 - SBAR form ms3 - Leadership Thank You Letter ms3 Signatures: Dispatcher [employer] EDMari Hdez FNP-C LAP WINDING MACHINE OPERATOR-Alexisw Diane Conklin, RN RN cg Neva Anguiano Marcus, DO DO ms3 Heather Moya RN RN jw7 Michelle Sales RN RN cm10 Dian Gamez RN lg3 Corrections: (The following items were deleted from the chart) 03/23 22:24 21:14 Telemetry/MedSurg (observation) ms3 cg 22:24 21:14 ms3 cg 03/24 07:01 03/23 22:24 [facility] ER HOLD cg eb 03/24 07:01 03/23 22:24 ERHOLD- cg eb
--- NOTE | 2023-03-23 21:15 | ER ---
Nurse's Notes [facility] Name: Murray Matos Jr Age: 77 yrs Sex: Male : 1945 Arrival Date: 03/23/2023 Time: 19:38 Bed 7 Private MD: Diagnosis: Heart failure, unspecified;Chronic kidney disease, unspecified;Anemia, unspecified Presentation: 03/23 19:50 Chief complaint: Patient states: cough and bilateral leg swelling onset Saturday. Pt cm10 states that he was seen at urgent care on Saturday and was negative for flu and COVID. Pt reports that his cough is productive. Pt reports rib pain with coughing. Coronavirus screen: Vaccine status: Patient reports receiving the 2nd dose of the covid vaccine. Client denies travel out of the [place] in the last 14 days. Ebola Screen: Patient denies travel to an Ebola-affected area in the 21 days before illness onset. No symptoms or risks identified at this time. Initial Sepsis Screen: Does the patient meet any 2 criteria? No. Patient's initial sepsis screen is negative. Does the patient have a suspected source of infection? No. Patient's initial sepsis screen is negative. Risk Assessment: Do you want to hurt yourself or someone else? Patient reports no desire to harm self or others. Onset of symptoms was March 23, 2023. 19:50 Method Of Arrival: Ambulatory 10 19:50 Acuity: WALDEMAR 3 cm10 Historical: - Allergies: 19:52 Latex; cm10 - PMHx: 19:52 Arthritis; Hypothyroidism; iron deficiency; Hypertension; Hyperlipidemia; heart attack; cm10 Renal Disease; Congestive heart failure; Diabetes mellitus; Gout; CAD; - PSHx: 19:52 Coronary artery bypass graft; Defibrilator; cm10 - Immunization history:: Adult Immunizations up to date. - Social history:: Smoking status: Patient denies any tobacco usage or history of. Screenin:15 [facility] ED Fall Risk Assessment (Adult) History of falling in the last 3 months, jw7 including since admission No falls in past 3 months (0 pts) Score/Fall Risk Level 0 - 2 = Low Risk Oriented to surroundings, Maintained a safe environment. Abuse screen: Denies threats or abuse. Denies injuries from another. Nutritional screening: No deficits noted. Tuberculosis screening: No symptoms or risk factors identified. Assessment: 20:00 General: Appears in no apparent distress. uncomfortable, Behavior is calm, cooperative. jw7 Pain: Denies pain. Neuro: Dey Agitation-Sedation Scale (RASS): 0 - Alert and Calm Level of Consciousness is awake, alert, obeys commands, Oriented to person, place, time, situation. Cardiovascular: Reports shortness of breath, Capillary refill < 3 seconds Clubbing of nail beds is absent JVD is absent Patient's skin is warm and dry. Rhythm is sinus rhythm. Respiratory: Airway is patent Trachea midline Respiratory effort is even, unlabored, Respiratory pattern is regular, symmetrical, tachypnea. GI: Abdomen is round non-distended, Bowel sounds present X 4 quads. Abd is soft and non tender X 4 quads. : No deficits noted. No signs and/or symptoms were reported regarding the genitourinary system. EENT: No deficits noted. No signs and/or symptoms were reported regarding the EENT system. Derm: Skin is intact, is healthy with good turgor, Skin is dry, Skin is normal, Skin temperature is warm. Musculoskeletal: No deficits noted. No signs and/or symptoms reported regarding the musculoskeletal system. 21:17 Reassessment: Patient appears in no apparent distress at this time. No changes from jw7 previously documented assessment. Patient and/or family updated on plan of care and expected duration. Pain level reassessed. Patient is alert, oriented x 3, equal unlabored respirations, skin warm/dry/pink. 22:28 Reassessment: Patient appears in no apparent distress at this time. No changes from jw7 previously documented assessment. Patient and/or family updated on plan of care and expected duration. Pain level reassessed. Patient is alert, oriented x 3, equal unlabored respirations, skin warm/dry/pink. Vital Signs: 19:50 BP 138 / 82; Pulse 73; Resp 18; Temp 98.3(TE); Pulse Ox 100% on R/A; Weight 83.01 kg; cm10 Height 5 ft. 2 in. ; Pain 9/10; 20:20 BP 144 / 75; Pulse 71; Resp 20 S; Pulse Ox 97% on R/A; jw7 21:00 BP 152 / 71; Pulse 74; Resp 18 S; Pulse Ox 98% on R/A; jw7 22:15 BP 158 / 76; Pulse 71; Resp 17 S; Pulse Ox 100% on R/A; jw7 19:50 Body Mass Index 33.47 (83.01 kg, 157.48 cm) cm10 19:50 Pain Scale: Adult cm10 ED Course: 19:40 Patient arrived in ED. jj6 19:43 Ryan Gary DO is Attending Physician. ms3 19:52 Triage completed. cm10 19:54 Arm band placed on Patient placed in an exam room, on a stretcher. cm10 20:11 Basic Metabolic Panel Sent. kl 20:11 CBC with Diff Sent. kl 20:11 LFT's Sent. kl 20:11 Magnesium Sent. kl 20:11 NT PRO-BNP Sent. kl 20:11 Troponin HS Sent. kl 20:13 Inserted saline lock: 22 gauge in left forearm, using aseptic technique. Blood kl collected. 20:45 XRAY Chest (1 view) In Process Unspecified. EDMS 20:58 Heather Moya, RN is Primary Nurse. jw7 20:59 Patient has correct armband on for positive identification. Bed in low position. Call [facility] light in reach. 21:14 Danna Thornton MD is Hospitalizing Provider. ms3 21:19 Provided Education on: need for admit. 7 21:19 No provider procedures requiring assistance completed. Patient admitted, IV remains in [facility] place. Administered Medications: 21:14 Drug: Furosemide IVP 40 mg IVP once; give over 2 minutes Route: IVP; Site: left [facility] antecubital; 03/24 00:04 Follow up: Response: No adverse reaction lg3 Medication: / 21:19 VIS not applicable for this client. jw7 Outcome: 21:14 Decision to Hospitalize by Provider. ms3 /03 00:04 Admitted to ER Hold. Please see [facility] for further documentation. lg3 Condition: stable Instructed on the need for admit, 08:28 Patient left the ED. dona Signatures: Dispatcher [employer] EDMS Abiola Frias RN Dian Boyce RN RN lg3 Ryan Gary DO DO ms3 Ambar Huddleston jj6 Heather Moya RN RN jwKayli Padilla RN RN mb9 Henrry, Michelle, RN RN cm10
[2023-03-23] MEDS ORDERED: FUROSEMIDE 40 MG/4 ML VIAL ONE (21:21)
[2023-03-23] MEDS ORDERED: ALPRAZOLAM 0.25 MG TABLET PO PRN (21:50)
[2023-03-23] MEDS: HEPARIN 5000 UNIT/ML 1 ML VIAL SQ SCH (22:00)
[2023-03-23] MEDS: NITROGLYCERIN 1 GM PKT TD SCH (22:00)
--- NOTE | 2023-03-23 22:42 | RAD REPORT ---
EXAM DESCRIPTION: US - Renal Ultrasound-Complete - 03/23/2023 10:34 pm CLINICAL HISTORY: VIC Flank pain COMPARISON: <Comparisons> FINDINGS: Both kidneys are mildly echogenic. The right kidney measures 10.8 x 5.6 x 5.1 cm. No hydronephrosis, focal mass or perinephric fluid. 3. 3 cm benign-appearing right renal cyst. The left kidney measures 9.5 x 5.0 x 4.5 cm. No hydronephrosis, focal mass or perinephric fluid. 1.3 cm cyst cortex left kidney. The urinary bladder is incompletely distended without gross abnormality seen. IMPRESSION: Mildly echogenic kidneys suggesting underlying medical renal disease. Bilateral renal cysts are present, benign in appearance.
--- NOTE | 2023-03-23 22:42 | RAD REPORT ---
EXAM DESCRIPTION: US - Extrem Venous W Compress Darryl - 03/23/2023 10:33 pm CLINICAL HISTORY: CHF with edema, cough, SOB Bilateral leg edema and swelling. COMPARISON: <Comparisons> TECHNIQUE: Real-time sonographic interrogation of the left and right lower extremity deep venous sys tems was performed. FINDINGS: Normal compressibility, flow augmentation, phasic flow and spontaneous flow is identified in both the left and right lower extremity deep venous systems. IMPRESSION: No sonographic evidence of left or right lower extremity deep venous thrombosis.
[2023-03-23 23:05] VITALS: BMI 33.5
[2023-03-24 01:26] LABS: Specific Gravity 1.006 (1.005-1.030); Urine Bacteria None Seen /HPF (<20); Urine Bilirubin NEGATIVE (Negative); Urine Blood Negative (Negative); Urine Clarity Clear (Clear); Urine Color Colorless (Yellow); Urine Glucose 2+ (Negative); Urine Protein NEGATIVE (Negative); Urine RBC <5 /HPF (None Seen); Urine Urobilinogen Normal (Normal)
[2023-03-24] MEDS ORDERED: HYDROCODONE/CHLORPHEN 5 ML/OSYR PO ONE (01:37)
--- NOTE | 2023-03-24 02:13 | P.HP ---
Certification for Inpatient With expected LOS: >2 Midnights Patient will require the following post-hospital care: None Practitioner: I am a practitioner with admitting privileges, knowledge of patient current condition, hospital course, and medical plan of care. Services: Services provided to patient in accordance with Admission requirements found in Title 42 Section 412.3 of the Code of Federal Regulations <Mari Briseno - Last Filed: 03/24/23 02:42> Patient History Date of Service: 03/24/23 Primary Care Provider: PCP in [place], sees Dr. Stevens (cards) and Dr. Coello (nephro in [place] Reason for admission: Shortness of breath, cough History of Present Illness: Mr. Matos is a 77 yo male with a history of CAD, HTN, HLD, and NIDDM. He arrived in the ED for cough and shortness of breath. Mr. Matos was noted to have edema to bilateral lower extremities and reports he has not been able to lie down for several days 2nd to SOB. He was given lasix in the ED after diagnosis of congestive heart failure. 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 Stevens in [place]. Last week he had interrogation of his defibrillator and was told it was functioning well, no reported episodes of electrical output by patient. Labs where performed per his loader magazine grinder and Mr. Matos's Daughter shared those results. 02/27/23 H/H 12.5 &37, Creatinine 1.57 with GFR 45. On evaluation in the ED his current creatinine is 2.34 with a GFR of 28. Home medications list reviewed: Yes - Past Medical/Surgical History Has patient received pneumonia vaccine in the past: No Diabetic: Yes -: HTN -: HLD -: NIDDM -: CHF -: Hypothyroidism -: Cardiac stent -: CABG -: Defibrillator placement -: Cataract surgery -: Total right knee replacement - Family History Family History: Reviewed- Non-Contributory - Social History Smoking Status: Never smoker Alcohol use: No CD- Drugs: No Caffeine use: Yes Place of Residence: Home (with , lives next door to Daughter) <Mari Briseno - Last Filed: 03/24/23 02:42> Date of Service: 03/24/23 <Danna Thornton - Last Filed: 03/24/23 12:18> Allergies latex Adverse Reaction (Verified 03/24/23 02:11) Tape Allergy (Uncoded 08/01/14 09:14) Unknown No Known Aller Adverse Reaction (Mild, Uncoded 03/24/23 02:11) Unknown Home Medications: Aspirin [Aspirin EC] 81 mg PO DAILY 03/23/23 Azilsartan Medoxomil [Edarbi] 40 mg PO DAILY 03/23/23 Carvedilol [Coreg] 25 mg PO DAILY 03/23/23 Clopidogrel Bisulfate [Plavix] 75 mg PO DAILY 03/23/23 Dapagliflozin Propanediol [Farxiga] 10 mg PO DAILY 03/23/23 Dulaglutide [Trulicity] 0.75 mg SQ DIRECTED 03/23/23 Furosemide 40 mg PO DAILY 03/23/23 Levothyroxine [Synthroid] 100 mcg PO DAILY 03/23/23 Simvastatin 40 mg PO DAILY 03/23/23 Allopurinol 2 tab PO DAILY 03/24/23 Review of Systems General: Malaise Eyes: Unremarkable ENT: Unremarkable Respiratory: Cough, Shortness of Breath, SOB with Excertion, As per HPI Cardiovascular: Orthopnea, Paroxysmal Noc. Dyspnea, Other (MORGAN ICD, RA-lead RV, model [id number] per Dr. Luis Carlos Medley), As per HPI Gastrointestinal: Unremarkable Genitourinary: Unremarkable Musculoskeletal: Unremarkable Integumentary: Unremarkable Neurological: Unremarkable Lymphatics: Unremarkable <Briseno,Mari - Last Filed: 03/24/23 02:42> Physical Examination - Vital Signs Temperature: 98.6 F Blood Pressure: 158/76 Pulse: 71 Respirations: 17 Pulse Ox (%): 100 - Physical Exam General: Alert, Oriented x3, Mild distress, Other (orthopneic) HEENT: Atraumatic Neck: 2+ carotid pulse no bruit Respiratory: Diminished Cardiovascular: Abnormal S3, Edema Capillary refill: <2 Seconds Gastrointestinal: Soft and benign, Distended Musculoskeletal: No clubbing Integumentary: No rashes Neurological: Normal gait, Normal speech Lymphatics: No axilla or inguinal lymphadenopathy External genitalia: Deferred Rectal: Deferred - Studies Laboratory Data (last 24 hrs) 03/23/23 03/23/23 20:05 20:05 WBC 7.10 Hgb 12.8 L Hct 38.5 L Plt Count 102 L Sodium 135 L Potassium 4.0 BUN 53 H Creatinine 2.34 H Glucose 175 H Magnesium 2.3 Total Bilirubin 1.3 H AST 17 ALT 23 Alkaline Phosphatase 88 <Mari Briseno - Last Filed: 03/24/23 02:42> - Studies Laboratory Data (last 24 hrs) 03/23/23 03/23/23 20:05 20:05 WBC 7.10 Hgb 12.8 L Hct 38.5 L Plt Count 102 L Sodium 135 L Potassium 4.0 BUN 53 H Creatinine 2.34 H Glucose 175 H Magnesium 2.3 Total Bilirubin 1.3 H AST 17 ALT 23 Alkaline Phosphatase 88 <Lin Thorntonfuad Brooke - Last Filed: 03/24/23 12:18> Assessment and Plan - Problems (Diagnosis) (1) Hypertension 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 Tijerina Qualifiers: Heart failure type: systolic Discharge Plan: Home Plan to discharge in: 72 Hours - Advance Directives Does patient have a Living Will: Yes Does patient have a Durable POA for Healthcare: Yes - Code Status/Comfort Care Code Status: Do Not Intubate Critical Care: No Time Spent Managing Pts Care (In Minutes): 60 <Mari Briseno - Last Filed: 03/24/23 02:42> Date of Service: 03/24/23 Agree with findings as mentioned above. Patient admitted with chest discomfort and shortness of breath. Patient also with a history of diabetes and hypertension. Patient with multiple risk factors and we will go ahead and start patient on IV diuretics and get an echocardiogram. Cardiology consultation as well. Monitor troponins. Patient also with chronic renal disease. Renal ultrasound pending. Nephrology consultation pending as well. Patient will be admitted for inpatient hospitalization. Patient blood sugars are stable. Will check hemoglobin A1c level. Will check thyroid studies. <NorbertoLinfuad Cox - Last Filed: 03/24/23 12:18>
[2023-03-24] MEDS ORDERED: ALBUTEROL 2.5 MG/3 ML NEB SOL NEB ONE (02:38)
[2023-03-24] MEDS ORDERED: ALBUTEROL 2.5 MG/3 ML NEB SOL ONE (02:45)
[2023-03-24 03:43] LABS: Hematocrit 37.5 % (39.6-49.0); MCV 92.6 fL (80-100); MPV 8.9 fL (7.6-11.3); Platelets 117 thou/uL (152-406); RBC Red Blood Cell Count 4.04 M/uL (4.33-5.43)
[2023-03-24 03:55] LABS: Protime INR 1.16
[2023-03-24] MEDS: NITROGLYCERIN 1 GM PKT TD SCH ×3 (04:00→11:46)
[2023-03-24 04:07] LABS: Albumin 3.8 g/dL (3.4-5.0); Bilirubin Total 1.8 mg/dL (0.2-1.0); Phosphorus 5.6 mg/dL (2.5-4.9); Protein, Total 8.2 g/dL (6.4-8.2); Troponin High Sensitivity 27.8 pg/mL (<58.9)
[2023-03-24] MEDS ORDERED: NITROGLYCERIN 1 GM PKT TD ONE (04:27)
[2023-03-24] MEDS ORDERED: HEPARIN 5000 UNIT/ML 1 ML VIAL ONE (04:27)
[2023-03-24 04:40] LABS: Potassium 4.6 mEq/L (3.5-5.1)
[2023-03-24 04:41] LABS: Magnesium 2.3 mg/dL (1.6-2.4)
[2023-03-24] MEDS ORDERED: MORPHINE 2 MG/ML SYR IV ONE (04:58)
[2023-03-24] MEDS: HEPARIN 5000 UNIT/ML 1 ML VIAL SQ SCH ×3 (05:30→17:22)
[2023-03-24 05:58] LABS: SARS-CoV-2 Antigen Rapid Res Negative (Negative)
[2023-03-24] MEDS: INSULIN REGULAR (HUMAN) 100 UNIT/ML SQ SCH ×4 (07:30→21:00)
[2023-03-24] MEDS ORDERED: FUROSEMIDE 20 MG/ 2ML VIAL IV SCH (09:00)
--- NOTE | 2023-03-24 09:06 | P.CNS ---
Date of Consult: 03/24/23 Reason for Consult: CKD Primary Care Provider: PCP in [place], sees Dr. Stevens (cards) and Dr. Coello (nephro in [place] Chief Complaint: Shortness of breath, cough History of Present Illness: Mr. Matos is a 77 yo male with a history of CAD, HTN, HLD, and NIDDM. He arrived in the ED for cough and shortness of breath. Mr. Matos was noted to have edema to bilateral lower extremities and reports he has not been able to lie down for several days 2nd to . He was given lasix in the ED after diagnosis of congestive heart failure. Mr. Matos has a sandblast or shotblast equipment tender in [place] and sees Dr. Stevens in [place]. Last week he had interrogation of his defibrillator and was told it was functioning well, no reported episodes of electrical output by patient. Labs where performed per his sandblast or shotblast equipment tender and Mr. Matos's Daughter shared those results. 02/27/23 H/H 12.5 &37, Creatinine 1.57 with GFR 45. On evaluation in the ED his current creatinine is 2.34 with a GFR of 28. [id number] 19:55 This 77 yrs old Male presents to ER via Ambulatory with complaints of ms3 Breathing Difficulty, Cough, Swelling of Lower Extremity, Pt has h/o CHF. 19:55 77-year-old male with past medical history of arthritis, hypothyroidism, hypertension, ms3 hyperlipidemia, diabetes, coronary artery disease, chronic kidney disease presents to the emergency department for cough that began on Saturday. Patient was seen at [facility] urgent care where a flu and COVID test returned negative. Patient notes he developed lower extremity swelling that began on . Patient denies pain at this time. Patient denies nausea, vomiting, chest pain, shortness of breath.. No difficulty with urination. No NSAIDs. Allergies latex Adverse Reaction (Verified 03/24/23 02:11) Tape Allergy (Uncoded 08/01/14 09:14) Unknown No Known Aller Adverse Reaction (Mild, Uncoded 03/24/23 02:11) Unknown Home medications list reviewed: Yes Home Medications: Aspirin [Aspirin EC] 81 mg PO DAILY 03/23/23 Azilsartan Medoxomil [Edarbi] 40 mg PO DAILY 03/23/23 Carvedilol [Coreg] 25 mg PO DAILY 03/23/23 Clopidogrel Bisulfate [Plavix] 75 mg PO DAILY 03/23/23 Dapagliflozin Propanediol [Farxiga] 10 mg PO DAILY 03/23/23 Dulaglutide [Trulicity] 0.75 mg SQ DIRECTED 03/23/23 Furosemide 40 mg PO DAILY 03/23/23 Levothyroxine [Synthroid] 100 mcg PO DAILY 03/23/23 Simvastatin 40 mg PO DAILY 03/23/23 Allopurinol 2 tab PO DAILY 03/24/23 - Past Medical/Surgical History Diabetic: Yes -: HTN -: HLD -: NIDDM -: CHF -: Hypothyroidism -: CKD IIIb (Dr. Coello/ Dr. Urena) -: Cardiac stent -: CABG -: Defibrillator placement -: Cataract surgery -: Total right knee replacement - Social History Smoking Status: Former smoker Alcohol use: No CD- Drugs: No Caffeine use: Yes Place of Residence: Home (with , lives next door to Daughter) Review of Systems 10-point ROS is otherwise unremarkable Cardiovascular: Edema Physical Examination Temp Pulse Resp BP Pulse Ox 98.6 F 79 19 118/64 98 03/24/23 04:00 03/24/23 04:00 03/24/23 05:28 03/24/23 04:00 03/24/23 05:28 General: In no apparent distress, Oriented x3, Cooperative HEENT: Atraumatic Neck: Supple Respiratory: Clear to auscultation bilaterally Cardiovascular: Edema Gastrointestinal: Soft and benign, Non-distended Musculoskeletal: No clubbing, No contractures Integumentary: No rashes, No cyanosis Neurological: Normal speech Laboratory Data (last 24 hrs) 03/23/23 03/23/23 20:05 20:05 WBC 7.10 Hgb 12.8 L Hct 38.5 L Plt Count 102 L Sodium 135 L Potassium 4.0 BUN 53 H Creatinine 2.34 H Glucose 175 H Magnesium 2.3 Total Bilirubin 1.3 H AST 17 ALT 23 Alkaline Phosphatase 88 Imagings Data: [id number] EXAM DESCRIPTION: US - Renal Ultrasound-Complete - 03/23/2023 10:34 pm CLINICAL HISTORY: VIC Flank pain COMPARISON: <Comparisons> FINDINGS: Both kidneys are mildly echogenic. The right kidney measures 10.8 x 5.6 x 5.1 cm. No hydronephrosis, focal mass or perinephric fluid. 3.3 cm benign-appearing right renal cyst. The left kidney measures 9.5 x 5.0 x 4.5 cm. No hydronephrosis, focal mass or perinephric fluid. 1.3 cm cyst cortex left kidney. The urinary bladder is incompletely distended without gross abnormality seen. IMPRESSION: Mildly echogenic kidneys suggesting underlying medical renal disease. Bilateral renal cysts are present, benign in appearance. [id number] EXAM DESCRIPTION: US - Extrem Venous W Compress Darryl - 03/23/2023 10:33 pm CLINICAL HISTORY: CHF with edema, cough, SOB Bilateral leg edema and swelling. COMPARISON: <Comparisons> TECHNIQUE: Real-time sonographic interrogation of the left and right lower extremity deep venous systems was performed. FINDINGS: Normal compressibility, flow augmentation, phasic flow and spontaneous flow is identified in both the left and right lower extremity deep venous systems. IMPRESSION: No sonographic evidence of left or right lower extremity deep venous thrombosis. [id number] EXAM DESCRIPTION: RAD - Chest Single View - 03/23/2023 8:43 pm CLINICAL HISTORY: COUGH Chest pain. COMPARISON: <Comparisons> FINDINGS: Portable technique limits examination quality. Mild pulmonary edema is seen. The heart is moderately prominent. Sternotomy wires.Dual lead pacer/defibrillator device. IMPRESSION: Mild CHF pattern. Conclusions/Impression: Stage I VIC likely CRS CKD IIIb BL Renal Cysts, benign -No NSAIDs -Continue furosemide Hyponatremia -Continue furosemide HTN with CKD/ CHF -Restart Coreg Systolic CHF, A/C -Continue furosemide -Low sodium diet DM II -RISS Anemia in chronic illness, mild -Monitor H&H Ex Cigarette Smoker Thank you kindly for the consultation
[2023-03-24] MEDS: carvediloL 12.5 MG TAB PO SCH ×2 (09:41→17:23)
[2023-03-24] MEDS ORDERED: PNEUMOCOCCAL VACCINE 0.5 ML IMVAC ONE (10:00)
--- NOTE | 2023-03-24 10:55 | RAD REPORT ---
EXAM DESCRIPTION: Ngozi Glasgow And Ines (2 Views)03/24/2023 10:22 am CLINICAL HISTORY: Shortness of breath COMPARISON: March 23, 2023 FINDINGS: The lungs appear clear of acute infiltrate. The heart is mildly to moderately enlarged. Pacemaker leads in place. Postsurgical changes involve th e chest IMPRESSION: No acute abnormalities displayed
[2023-03-24] MEDS ORDERED: MORPHINE 2 MG/ML SYR IV PRN (11:32)
[2023-03-24] MEDS ORDERED: DULAGLUTIDE 0.75 MG/0.5 ML SQ SCH (11:45)
[2023-03-24] MEDS: ALBUTEROL 2.5 MG/3 ML NEB SOL NEB SCH ×2 (12:20→20:56)
[2023-03-24] MEDS: GUAIFENESIN/CODEINE 5ML UCUP PO PRN (17:21)
[2023-03-24] MEDS: ATORVASTATIN 20 MG TAB PO SCH (21:11)
[2023-03-25] MEDS: HEPARIN 5000 UNIT/ML 1 ML VIAL SQ SCH ×3 (00:44→17:58)
[2023-03-25] MEDS: ALBUTEROL 2.5 MG/3 ML NEB SOL NEB SCH ×4 (01:45→20:19)
[2023-03-25 06:50] LABS: Absolute Lymphocytes (CBC) 1.4 K/uL (0.7-4.9); Hematocrit 37.7 % (39.6-49.0); Lymphocytes % 15.6 % (15.3-44.8); MCV 93.4 fL (80-100); MPV 9.1 fL (7.6-11.3); Platelets 116 thou/uL (152-406); RBC Red Blood Cell Count 4.04 M/uL (4.33-5.43)
[2023-03-25] MEDS: carvediloL 12.5 MG TAB PO SCH ×2 (07:00→17:58)
[2023-03-25] MEDS: LEVOTHYROXINE SOD 0.1 MG TAB PO SCH (07:00)
--- NOTE | 2023-03-25 07:21 | RAD REPORT ---
EXAM DESCRIPTION: US - Liver Only - 03/25/2023 5:34 am CLINICAL HISTORY: Elevated bilirubin; ? cirrhosis COMPARISON: No comparisons FINDINGS: The liver demonstrates increased echogenicity consistent with hepatic steatosis. No focal liver lesion or intrahepatic biliary dilatation.No evidence of portal vein thrombosis. Simple right upper pole renal cyst measuring 2.6 cm. No right-sided hydronephrosis. IMPRESSION: Hepatic steatosis. No overt evidence of cirrhosis. Cholecystectomy. Benign right renal cyst.
[2023-03-25] MEDS: INSULIN REGULAR (HUMAN) 100 UNIT/ML SQ SCH ×4 (07:30→20:25)
[2023-03-25 07:36] LABS: ALT/SGPT 20 U/L (16-61); AST/SGOT 19 U/L (15-37); Albumin 3.5 g/dL (3.4-5.0); Alkaline Phosphatase 75 U/L (45-117); BUN Blood Urea Nitrogen 56 mg/dL (7-18); Bicarbonate 24 mEq/L (21-32); Glomerular Filtration Rate 31 ml/min (=/>90); Glucose Level 109 mg/dL (74-106); HDL Cholesterol 30 mg/dL (40-60); LDL Cholesterol, Calculated 15 mg/dL (<130); NT PRO-BNP 3847 pg/mL (<450); Potassium 3.9 mEq/L (3.5-5.1); Protein, Total 7.5 g/dL (6.4-8.2); Sodium Level 131 mEq/L (136-145); Thyroid Stimulating Hormone 0.988 uIU/mL (0.358-3.740); Troponin High Sensitivity 28.2 pg/mL (<58.9)
[2023-03-25 07:54] LABS: Hepatitis B Core IgM Nonreactive (Nonreactive); Hepatitis B surface AG Interp. Nonreactive (Nonreactive); Hepatitis C Virus Ab Nonreactive (Nonreactive)
[2023-03-25] MEDS: allopurinoL 100 MG TAB PO SCH (08:17)
[2023-03-25] MEDS: GUAIFENESIN/CODEINE 5ML UCUP PO PRN ×2 (08:17→20:25)
[2023-03-25] MEDS: CLOPIDOGREL 75 MG TABLET PO SCH (08:17)
[2023-03-25] MEDS: ASPIRIN EC 81 MG TAB PO SCH (08:17)
[2023-03-25] MEDS ORDERED: FUROSEMIDE 40 MG TABLET PO SCH (09:00)
[2023-03-25] MEDS: HOME MED 1 EA UNK (Dapagliflozin Propanediol [Farxiga] 10 MG Tablet) PO SCH (09:00)
[2023-03-25] MEDS ORDERED: AZILSARTAN MEDOXOMIL 40 MG PO SCH (09:00)
[2023-03-25] MEDS ORDERED: carvediloL 25 MG TAB PO SCH (09:00)
[2023-03-25] MEDS ORDERED: HOME MED 1 EA UNK (Aspirin [Aspirin Ec] 81 MG Tablet.Dr) PO SCH (09:00)
[2023-03-25] MEDS ORDERED: HOME MED 1 EA UNK (Simvastatin [Simvastatin] 40 MG Tablet) PO SCH (09:00)
[2023-03-25] MEDS ORDERED: HOME MED 1 EA UNK (Dapagliflozin Propanediol [Farxiga] 10 MG Tablet) PO SCH (09:00)
[2023-03-25] MEDS: AZILSARTAN MEDOXOMIL 40 MG PO SCH (10:12)
--- NOTE | 2023-03-25 14:27 | P.PN ---
Subjective Date of Service: 03/25/23 Primary Care Provider: PCP in [facility] sees Dr. Stevens (cards) and Dr. Coello (nephro in [place] Chief Complaint: Shortness of breath, cough Pt is resting comfortably in bed. He denies any chest pain, fever, chills or nausea but reports SOB. Waiting for Echo. No complaints. Review of Systems General: Unremarkable Eyes: Unremarkable ENT: Unremarkable Respiratory: Unremarkable Cardiovascular: Unremarkable Gastrointestinal: Unremarkable Genitourinary: Unremarkable Musculoskeletal: Unremarkable Neurological: Unremarkable Lymphatics: Unremarkable Physical Examination - Vital Signs Temperature: 96.8 F Blood Pressure: 112/69 Pulse: 70 Respirations: 16 Pulse Ox (%): 95 - Physical Exam General: In no apparent distress, Cooperative HEENT: Atraumatic, Normocephalic, PERRLA Neck: Supple, 2+ carotid pulse no bruit Respiratory: Clear to auscultation bilaterally, Normal air movement Cardiovascular: No edema, Normal pulses, Normal S1 S2 Capillary refill: <2 Seconds Gastrointestinal: Normal bowel sounds, Non-distended Musculoskeletal: No clubbing, No swelling Integumentary: No rashes, No breakdown Neurological: Sensation intact, Abnormal affect Assessment And Plan - Plan CHF: Will continue lasix, strict I/O, daily weight and low salt diet. Will follow up Echo. BNP is 544 HTN: Continue home med HLD: Statin NIDDM: Will continue accuchek, SSI and ADA diet. Hypothyroidism: synthroid. Hx of CAD s/p Cardiac stent and CABG. Will continue home meds. Pt has a defibrillator in place. DVT ppx: SCD Dispo: Pending hospital course. Discharge Plan: Fpc Plan to discharge in: 24 Hours - Code Status/Comfort Care Code Status Assessed: Yes Code Status: Full Code
[2023-03-25] MEDS ORDERED: UREA 15 GM POWDER PACKET PO ONE (15:00)
[2023-03-25] MEDS: ATORVASTATIN 20 MG TAB PO SCH (20:25)
[2023-03-25] MEDS: FUROSEMIDE 40 MG/4 ML VIAL IV SCH (21:37)
[2023-03-26] MEDS ORDERED: FUROSEMIDE 40 MG/4 ML VIAL IV SCH (01:00)
[2023-03-26] MEDS: HEPARIN 5000 UNIT/ML 1 ML VIAL SQ SCH ×2 (01:07→09:00)
[2023-03-26] MEDS: ALBUTEROL 2.5 MG/3 ML NEB SOL NEB SCH ×3 (02:45→14:02)
[2023-03-26 03:03] VITALS: O2SAT 93
[2023-03-26] MEDS: carvediloL 12.5 MG TAB PO SCH (06:21)
[2023-03-26] MEDS: FUROSEMIDE 40 MG/4 ML VIAL IV SCH ×2 (06:21→14:06)
[2023-03-26] MEDS: LEVOTHYROXINE SOD 0.1 MG TAB PO SCH (06:21)
[2023-03-26 07:12] LABS: Absolute Lymphocytes (CBC) 1.7 K/uL (0.7-4.9); Hematocrit 37.2 % (39.6-49.0); Lymphocytes % 23.6 % (15.3-44.8); MPV 9.1 fL (7.6-11.3); Platelets 101 thou/uL (152-406); RBC Red Blood Cell Count 4.05 M/uL (4.33-5.43)
[2023-03-26 07:19] LABS: Potassium 3.7 mEq/L (3.5-5.1)
[2023-03-26] MEDS: INSULIN REGULAR (HUMAN) 100 UNIT/ML SQ SCH ×2 (07:30→11:30)
[2023-03-26] MEDS: ASPIRIN EC 81 MG TAB PO SCH (09:01)
[2023-03-26] MEDS: allopurinoL 100 MG TAB PO SCH (09:01)
[2023-03-26] MEDS: CLOPIDOGREL 75 MG TABLET PO SCH (09:01)
[2023-03-26] MEDS: AZILSARTAN MEDOXOMIL 40 MG PO SCH (09:05)
[2023-03-26] MEDS: HOME MED 1 EA UNK (Dapagliflozin Propanediol [Farxiga] 10 MG Tablet) PO SCH (09:05)
[2023-03-26] MEDS ORDERED: POTASSIUM CL SA 10 MEQ TAB PO ONE (11:00)
[2023-03-26 11:37] VITALS: BP 119/61; TEMP 97.1
--- NOTE | 2023-03-26 13:38 | EKG ---
Test Date: 2023-03-23 Test Time: 20:01:30 Automotive Service Advisor: AZAM MEASUREMENT RESULTS: Intervals: Rate: 73 FL: 206 QRSD: 184 QT: 472 QTc: 519 [place]: P: 77 FL: 206 QRS: 63 T: 235 INTERPRETIVE STATEMENTS: Normal sinus rhythm Left bundle branch block Abnormal ECG Compared to ECG 06/05/2014 11:09:32 Left bundle-branch block now present Sinus arrhythmia no longer present Myocardial infarct finding no longer present T-wave abnormality no longer present Possible ischemia no longer present Electronically Signed On 03-26-23 13:29:37 [facility] by Chetan Tijerina
--- NOTE | 2023-03-26 13:43 | ECHO ---
HEIGHT: 5 ft 2 in WEIGHT: 176 lb 9.6 oz DATE OF STUDY: 03/26/[address]: Mari Ott INSURANCE APPLICATION INVESTIGATOR-BC 2-DIMENSIONAL: YES M.MODE: YES DOPPLER: YES COLOR FLOW: YES TDS: YES PORTABLE: YES DEFINITY: BUBBLE STUDY: DIAGNOSIS: CONGESTIVE HEART FAILURE CARDIAC HISTORY: CATHERIZATION: YES SURGERY: CABG PROSTHETIC VALVE: PACEMAKER: DEFIB MEASUREMENTS (cm) DIASTOLIC (NORMALS) SYSTOLIC (NORMALS) IVSd 1.0 (0.6-1.2) LA Diam 4.2 (1.9-4.0) LVEF 59% LVIDd 5.3 (3.5-5.7) LVIDs 3.6 (2.0-3.5) %FS 32% LVPWd 1.2 (0.6-1.2) Ao Diam 3.0 (2.0-3.7) 2 DIMENSIONAL ASSESSMENT: RIGHT ATRIUM: NORMAL LEFT ATRIUM: ENLARGED RIGHT VENTRICLE: PACEMAKER WIRE LEFT VENTRICLE: NORMAL TRICUSPID VALVE: NORMAL MITRAL VALVE: MILD MITRAL REGURGITATION PULMONIC VALVE: NORMAL AORTIC VALVE: HEAVILY CALCIFIED PERICARDIAL EFFUSION: NONE AORTIC ROOT: NORMAL LEFT VENTRICULAR WALL MOTION: NORMAL DOPPLER/COLOR FLOW: SEE BELOW COMMENTS: 1. NORMAL LEFT VENTRICULAR EJECTION FRACTION 55-60% WITH NORMAL WALL MOTION 2. HEAVILY CALCIFIED AORTIC VALVE WITH MODERATE AORTIC STENOSIS 3. MILD MITRAL REGURGITATION 4. LEFT ATRIAL ENLARGEMENT 5. DIASTOLIC DYSFUNCTION TECHNOLOGIST: ASHWIN ARRIOLA
--- NOTE | 2023-03-26 14:05 | P.DS ---
Admission Date: 03/23/23 Discharge Date: 03/26/23 Primary Care Provider: PCP in [place], sees Dr. Lee (cards) and Dr. Coello (nephro in [place] Disposition: ROUTINE DISCHARGE Discharge Condition: GOOD Reason for Admission: Shortness of breath, cough Brief History of Present Illness: Mr. Matos is a 77 yo male with a history of CAD, HTN, HLD, and NIDDM. He arrived in the ED for cough and shortness of breath. Mr. Matos was noted to have edema to bilateral lower extremities and reports he has not been able to lie down for several days 2nd to SOB. He was given lasix in the ED after diagnosis of congestive heart failure. Mr. Matos has a spool tender in [place] and sees Dr. Lee in [place]. Last week he had interrogation of his defibrillator and was told it was functioning well, no reported episodes of electrical output by patient. Labs where performed per his spool tender and Mr. Matos's Daughter shared those results. 02/27/23 H/H 12.5 &37, Creatinine 1.57 with GFR 45. On evaluation in the ED his current creatinine is 2.34 with a GFR of 28. Hospital Course: Mr. Matos is a 77 yo male with a history of CAD, HTN, HLD, and NIDDM who presented with cough, leg edema and SOB. He was unable to lay down on his back due shortness of breath. On admission, lab studies showed elevated Cr and BNP. We admitted pt and diuresed him with lasix. The Icing Co[employer] managed his renal function. Of note, he had interrogation of his defibrillator last week and was told it was functioning well. We continued home meds for other chronic medical problems. Liver ultrasound showed hepatic steatosis without cirrhosis. Pt was advised to avoid hepatotoxins. We continued lasix and other home meds. Pt was advised to follow up with PCP, I[employer] and Cardiology. He was in NAD prior to discharge. Vital Signs/Physical Exam: Temp Pulse Resp BP Pulse Ox 97.1 F 64 17 119/61 94 03/26/23 11:58 03/26/23 11:58 03/26/23 11:58 03/26/23 11:58 03/26/23 11:58 Laboratory Data at Discharge: WBC 7.10 thou/uL (4.3-10.9) 03/26/23 06:38 Hgb 12.7 g/dL (13.6-17.9) L 03/26/23 06:38 Hct 37.2 % (39.6-49.0) L 03/26/23 06:38 Plt Count 101 thou/uL (152-406) L 03/26/23 06:38 PT 12.8 SECONDS (9.5-12.5) H 03/24/23 03:26 INR 1.16 03/24/23 03:26 APTT 29.7 SECONDS (24.3-36.9) 03/24/23 03:26 Sodium 134 mEq/L (136-145) L 03/26/23 06:38 Potassium 3.7 mEq/L (3.5-5.1) 03/26/23 06:38 BUN 101 mg/dL (7-18) H 03/26/23 06:38 Creatinine 2.25 mg/dL (0.70-1.30) H 03/26/23 06:38 Glucose 119 mg/dL (74-106) H 03/26/23 06:38 Uric Acid 6.5 mg/dL (3.5-7.2) 03/25/23 06:17 Phosphorus 5.6 mg/dL (2.5-4.9) H 03/24/23 03:26 Magnesium 2.0 mg/dL (1.6-2.4) 03/25/23 06:17 Total Bilirubin 2.0 mg/dL (0.2-1.0) H 03/25/23 06:17 AST 19 U/L (15-37) 03/25/23 06:17 ALT 20 U/L (16-61) 03/25/23 06:17 Alkaline Phosphatase 75 U/L (45-117) 03/25/23 06:17 Triglycerides 67 mg/dL (<150) 03/25/23 06:17 Cholesterol 58 mg/dL (<200) 03/25/23 06:17 HDL Cholesterol 30 mg/dL (40-60) L 03/25/23 06:17 Cholesterol/HDL Ratio 1.93 03/25/23 06:17 Home Medications: Aspirin [Aspirin EC] 81 mg PO DAILY 03/23/23 Azilsartan Medoxomil [Edarbi] 40 mg PO DAILY 03/23/23 Clopidogrel Bisulfate [Plavix] 75 mg PO DAILY 03/23/23 Dapagliflozin Propanediol [Farxiga] 10 mg PO DAILY 03/23/23 Dulaglutide [Trulicity] 0.75 mg SQ DIRECTED 03/23/23 Levothyroxine [Synthroid*] 100 mcg PO DAILY 03/23/23 Simvastatin 40 mg PO DAILY 03/23/23 Allopurinol 2 tab PO DAILY 03/24/23 Furosemide 40 mg PO BID 30 Days #60 cap 03/26/23 carvediloL [Coreg*] 12.5 mg PO BID 6AM 6PM 30 Days #60 tab 03/26/23 New Medications: carvediloL [Coreg*] 12.5 mg PO BID 6AM 6PM 30 Days #60 tab Furosemide 40 mg PO BID 30 Days #60 cap Physician Discharge Instructions: Follow up with PCP, Cardiology and Nephrology within 2 - 3 weeks. Diet: Regular Activity: Ad david Followup: MILLER LEE [UNKNOWN] - 1 Week Sydni Fu [ALLIED HEALTH PROFESSIONAL] - 1 Week
== END 2023-03-26 14:55 | disposition home or self-care (01) | DRG 291 ==
LOC: ER 19:38 → ERHOLD 21:50 → 4TH 03-24 07:55
PROVIDERS: ADMIT Hospitalist; ATTEND Hospitalist
DX: I13.0 Hypertensive heart and chronic kidney disease with heart failure and stage 1 through stage 4 chronic kidney disease, or unspecified chronic kidney disease (principal); I50.21 Acute systolic (congestive) heart failure; N17.9 Acute kidney failure, unspecified; E87.1 Hypo-osmolality and hyponatremia; N18.32 Chronic kidney disease, stage 3b; E11.22 Type 2 diabetes mellitus with diabetic chronic kidney disease; D63.1 Anemia in chronic kidney disease; M10.9 Gout, unspecified; M19.90 Unspecified osteoarthritis, unspecified site; E78.5 Hyperlipidemia, unspecified; E03.9 Hypothyroidism, unspecified; K76.0 Fatty (change of) liver, not elsewhere classified; N28.1 Cyst of kidney, acquired; I25.10 Atherosclerotic heart disease of native coronary artery without angina pectoris; Z95.1 Presence of aortocoronary bypass graft; Z11.52 Encounter for screening for COVID-19; Z79.82 Long term (current) use of aspirin; Z79.02 Long term (current) use of antithrombotics/antiplatelets; Z79.890 Hormone replacement therapy; Z91.048 Other nonmedicinal substance allergy status; Z91.040 Latex allergy status; Z95.810 Presence of automatic (implantable) cardiac defibrillator; Z96.651 Presence of right artificial knee joint; Z79.899 Other long term (current) drug therapy; Z87.891 Personal history of nicotine dependence
CPT/HCPCS: 36415; 71045; 71046; 76705; 76770; 80048; 80053; 80061; 80074; 80076; 81001; 82607; 82947; 83036; 83735; 83880; 84100; 84439; 84443; 84484; 84550; 85025; 85610; 85730; 86140; 87804; 87811; 93005; 93306; 93970; 94760; 96374; 99285; J1644; J1940; J2270; J7613

== ENCOUNTER 2024-09-08 17:18 | Emergency (ER) | payer OTHER ==
--- NOTE | 2024-09-08 18:00 | RAD REPORT ---
EXAM: CT Head Brain Wo Cont HISTORY: HEADACHE COMPARISON: None TECHNIQUE: Multiple contiguous axial images were obtained for a CT of the brain without contrast. Sag ittal and coronal reformats were performed. One or more of the following dose reduction techniques were used: Automated exposure control, adjus tment of the mA and kV according to patient size, and iterative reconstruction. Unless otherwise specified, incidental findings do not require dedicated imaging follow-up. FINDINGS: Right centrum semiovale anterior hyperdense 4 mm focus on axial image 21, without significant mass ef fect. Subtle sulci hyperdensity along the posterior aspect of the sylvian fissure, see sagittal image 25 and coronal image 44 among others. No evidence of hydrocephalus, acute territorial infarct, or extra-axial fluid collection. No midline shift or evidence of herniation. The brain is normal in morphology. The calvarium is intact. Right frontal scalp swelling and hematoma The visualized paranasal sinuses a nd mastoid air cells are essentially clear. IMPRESSION: 4 mm parenchymal focus of hyperdensity along the right centrum semiovale, may represent a small paren chymal hemorrhage (although without significant mass effect), versus hemorrhage within a cavernous venous malformation. Subtle sulcal hyperdensity along the posterior right sylvian fissure, concerning for small volume sub arachnoid hemorrhage. THIS REPORT CONTAINS FINDINGS THAT MAY BE CRITICAL TO PATIENT CARE. The findings were verbally commun icated via telephone to ALBERTO Lei on 09/08/2024 5:52 PM.
--- NOTE | 2024-09-08 18:13 | ER ---
Nurse's Notes [facility] Name: Murray Matos Jr Age: 79 yrs Sex: Male : 1945 Arrival Date: 09/08/2024 Time: 17:18 Bed 3 Private MD: Diagnosis: Traumatic subarachnoid hemorrhage;Fall on same level, unspecified Presentation: 09/08 17:30 Chief complaint: Patient states: TRIPPED AND FELL FOREHEAD AND HIT HEAD ON HITCH OF db [employer]. + BLOOD THINNERS. -LOC. ABRASION NOTED. NOTED BRUISING AND SWELLING TO FOREHEAD. Coronavirus screen: Client denies travel out of the [place] in the last 14 days. At this time, the client does not indicate any symptoms associated with coronavirus-19. Ebola Screen: Patient negative for fever greater than or equal to 101.5 degrees Fahrenheit, and additional compatible Ebola Virus Disease symptoms Patient denies exposure to infectious person. Patient denies travel to an Ebola-affected area in the 21 days before illness onset. No symptoms or risks identified at this time. Complicating Factors: There are no complicating factors for this patient. Initial Sepsis Screen: Does the patient meet any 2 criteria? No. Patient's initial sepsis screen is negative. Does the patient have a suspected source of infection? No. Patient's initial sepsis screen is negative. Risk Assessment: Do you want to hurt yourself or someone else? Patient reports no desire to harm self or others. Onset of symptoms was September 08, 2024. 17:30 Method Of Arrival: Ambulatory db 17:30 Acuity: WALDEMAR 2 db Triage Assessment: 17:31 General: Appears in no apparent distress. comfortable, Behavior is calm, cooperative. db Pain: Complains of pain in forehead. Neuro: Level of Consciousness is awake, alert, obeys commands, Oriented to person, place, time, situation. Respiratory: Airway is patent Respiratory effort is even, unlabored, Respiratory pattern is regular, symmetrical. Injury Description: Bruise sustained to face. Historical: - Allergies: 17:31 Latex; db - PMHx: 17:31 Arthritis; Congestive heart failure; Gout; Hypertension; Hyperlipidemia; diabetes db mellitus; Hypothyroidism; Renal Disease; iron deficiency; heart attack; CAD; - PSHx: 17:31 Coronary artery bypass graft; Defibrilator; db - Immunization history:: Adult Immunizations unknown. - Infectious Disease History:: Denies. - Social history:: Smoking status: Patient denies any tobacco usage or history of. Screenin:58 [facility] ED Fall Risk Assessment (Adult) History of falling in the last 3 months, ph including since admission Yes- single mechanical fall (1 pt) Confusion or Disorientation No (0 pts) Intoxicated or Sedated No (0 pts) Impaired Gait No (0 pts) Mobility Assist Device Used No (0 pt) Altered Elimination No (0 pt) Score/Fall Risk Level 0 - 2 = Low Risk Oriented to surroundings, Maintained a safe environment, Hourly rounding (assess needs \T\ fall precautionary measures) done. Abuse screen: Denies threats or abuse. Denies injuries from another. Nutritional screening: No deficits noted. Tuberculosis screening: No symptoms or risk factors identified. Assessment: 17:59 General: Appears in no apparent distress. comfortable, well groomed, Behavior is calm, ph cooperative, appropriate for age. Pain: Complains of pain in forehead. Neuro: Level of Consciousness is awake, alert, obeys commands, Oriented to person, place, time, situation, Denies dizziness. Cardiovascular: Capillary refill < 3 seconds in bilateral fingers Patient's skin is warm and dry. Respiratory: Airway is patent Respiratory effort is even, unlabored. Derm: Skin is healthy with good turgor. Musculoskeletal: Circulation, motion, and sensation intact. Range of motion: intact in all extremities, Swelling present in right side of forehead. Injury Description: Abrasion sustained to right side of forehead. 18:35 Reassessment: Report called to CARL [facility] at [facility], awaiting EMS for transport. 19:05 General: Report given to [facility] by day shift RN. Pt vss, GCS 15, alert and kd3 oriented. . Vital Signs: 17:30 BP 125 / 71; Pulse 65; Resp 16; Temp 97.8; Pulse Ox 97% ; Weight 78.93 kg; Height 5 ft. db 0 in. ; 18:35 BP 132 / 78; Pulse 64; Resp 18; Temp 97.9; Pulse Ox 98% on R/A; ph 17:30 Body Mass Index 33.98 (78.93 kg, 152.4 cm) db [place] Coma Score: 18:35 Eye Response: spontaneous(4). Motor Response: obeys commands(6). Verbal Response: ph oriented(5). Total: 15. Trauma Score (Adult): 18:35 Eye Response: spontaneous(1); Verbal Response: oriented(1); Motor Response: obeys ph commands(2); Systolic BP: > 89 mm Hg(4); Respiratory Rate: 10 to 29 per min(4); Krysta Score: 15; Trauma Score: 12 ED Course: 17:19 Patient arrived in ED. al6 17:26 Noemi Reddy FNP-C is PHCP. kb 17:26 Ryan Gary DO is Attending Physician. kb 17:31 Triage completed. db 17:32 Arm band placed on left wrist. db 17:46 CT Head Brain wo Cont In Process Unspecified. EDMS 17:53 Phil Pierre, RN is Primary Nurse. bp 17:58 Primary Nurse role handed off by Phil Pierre, CARL ph 17:58 Cary Abrams, RN is Primary Nurse. ph 17:59 Patient has correct armband on for positive identification. Bed in low position. Call ph light in reach. Side rails up X 1. Pulse ox on. NIBP on. Door closed. Noise minimized. Warm blanket given. Ice pack to injury. 18:12 initiated transfer to [facility]. bd 18:18 pt accepted in transfer to [facility] er by dr singh admin approval given by Riya Mcgregor bd 18:21 Initial lab(s) drawn, by tx, sent to lab. Inserted saline lock: 20 gauge in right bp forearm, using aseptic technique. Blood collected. Flushed with 10 mL NS. 18:36 No provider procedures requiring assistance completed. Patient transferred, IV remains ph in place. Administered Medications: No medications were administered Medication: 17:58 VIS not applicable for this client. ph Outcome: 18:13 ER care complete, transfer ordered by . kb 19:05 Transferred by ground EMS kd3 19:05 Condition: stable 19:05 Discharge instructions given to patient, family, Instructed on the need for transfer, Demonstrated understanding of instructions, 19:06 Patient left the ED. kd3 Signatures: Dispatcher [employer] EDMS Noemi Reddy FNP-C FNP-Libra Delaney bd Cary Abrams, RN RN ph Phil Pierre, RN RN bp Daria Ortiz, RN RN kd3 Cynthia Gee, RN RN db Mary Prieto
--- NOTE | 2024-09-08 18:13 | EDPHYS ---
Physician Documentation [facility] Name: Murray Matos Jr Age: 79 yrs Sex: Male : 1945 Arrival Date: 09/08/2024 Time: 17:18 Bed 3 Private MD: ED Physician Ryan Gary HPI: 09/08 17:55 This 79 yrs old Male presents to ER via Ambulatory with complaints of kb Laceration To Forehead - pt on blood thinners. 17:55 Patient is a 79-year-old male who presents after a fall just prior to arrival. States kb he tripped outside, fell forward and hit his forehead on the hitch of a trailer. Denies LOC. States he does take blood thinners. Denies any other injuries.. Historical: - Allergies: 17:31 Latex; db - PMHx: 17:31 Arthritis; Congestive heart failure; Gout; Hypertension; Hyperlipidemia; diabetes db mellitus; Hypothyroidism; Renal Disease; iron deficiency; heart attack; CAD; - PSHx: 17:31 Coronary artery bypass graft; Defibrilator; db - Immunization history:: Adult Immunizations unknown. - Infectious Disease History:: Denies. - Social history:: Smoking status: Patient denies any tobacco usage or history of. ROS: 17:54 Constitutional: As per HPI kb Exam: 17:54 Constitutional: This is a well developed, well nourished patient who is awake, alert, kb and in no acute distress. ENT: Moist Mucous membranes Cardiovascular: Regular rate Respiratory: Respirations even and unlabored. No increased work of breathing. Talking in full sentences Skin: Warm, dry with normal turgor. Normal color. MS/ Extremity: Pulses equal, no cyanosis. Neurovascular intact. Full, normal range of motion. Neuro: Awake and alert, GCS 15, oriented to person, place, time, and situation. 17:54 Head/face: Noted is no obvious of injury or deformity except abrasion(s), that are moderate, of the forehead, hematoma, that is moderate, of the forehead, Vital Signs: 17:30 BP 125 / 71; Pulse 65; Resp 16; Temp 97.8; Pulse Ox 97% ; Weight 78.93 kg; Height 5 ft. db 0 in. ; 18:35 BP 132 / 78; Pulse 64; Resp 18; Temp 97.9; Pulse Ox 98% on R/A; ph 17:30 Body Mass Index 33.98 (78.93 kg, 152.4 cm) db [place] Coma Score: 18:35 Eye Response: spontaneous(4). Motor Response: obeys commands(6). Verbal Response: ph oriented(5). Total: 15. Trauma Score (Adult): 18:35 Eye Response: spontaneous(1); Verbal Response: oriented(1); Motor Response: obeys ph commands(2); Systolic BP: > 89 mm Hg(4); Respiratory Rate: 10 to 29 per min(4); [place] Score: 15; Trauma Score: 12 MDM: 17:26 Medical Screening Exam initiated kb 17:54 Differential diagnosis: superficial laceration, Abrasion, contusion, hematoma, subdural kb hematoma, subarachnoid hemorrhage. Data reviewed: vital signs, nurses notes. Consideration of Admission/Observation Escalation of care including admission/observation considered. Patient will be transferred to [place] for trauma and neurosurgery. Discussion of test interpretation with radiology: I had a discussion with radiology regarding a test interpretation. Discussed CT head findings with Dr. Pacheco. Historians other than the Patient: Family Member: Family. Counseling: I had a detailed discussion with the patient and/or guardian regarding the historical points, exam findings, and any diagnostic results supporting the discharge/admit diagnosis, radiology results, the need to transfer to another facility, [facility] does not immediately have the required specialist. 18:30 Management of patient was discussed with the following: Dr Chua accepted pt for kb transfer to [facility] without conference. 09/08 17:59 Order name: CBC with Diff; Complete Time: 18:44 kb 09/08 17:59 Order name: CMP; Complete Time: 18:34 kb 09/08 17:59 Order name: Protime (+inr); Complete Time: 18:28 kb 09/08 17:59 Order name: Ptt, Activated; Complete Time: 18:28 kb 09/08 17:26 Order name: CT Head Brain wo Cont; Complete Time: 18:06 kb 09/08 17:59 Order name: IV Start; Complete Time: 18:18 kb Administered Medications: No medications were administered Disposition: 20:12 I was immediately available on-site in the Emergency Department for consultation in the [facility] care of the patient. Disposition Summary: 09/08/24 18:13 Transfer Ordered Notes: Transfer Location: [facility] Reason: Higher level of care kb Condition: Stable kb Problem: new kb Symptoms: are unchanged kb Accepting Physician: Dr Grimaldo(09/08/24 19:06) kd3 Diagnosis - Traumatic subarachnoid hemorrhage kb - Fall on same level, unspecified kb Forms: - Medication Reconciliation Form kb - SBAR form kb Signatures: Dispatcher [employer] EDMS Noemi Reddy, [employer]-Ryan Reed, DO ms3 Daria Ortiz RN RN kd3 Cynthia Gee RN RN db Corrections: (The following items were deleted from the chart) 18:13 17:54 Consideration of Admission/Observation Escalation of care including kb admission/observation considered. Patient will be transferred for neurosurgery. kb 18:13 17:54 Counseling: I had a detailed discussion with the patient and/or guardian kb regarding the historical points, exam findings, and any diagnostic results supporting the discharge/admit diagnosis, radiology results, the need to transfer to another facility, [facility] does not immediately have the required specialist, kb 18:30 18:13 dr byrnes kb 19:06 18:30 Dr Grimaldo kb kd3
[2024-09-08 18:24] LABS: PTT, Activated Partial Thromb 31.3 SECONDS (27.2-37.4); Protime INR 1.06
[2024-09-08 18:31] LABS: Albumin 3.7 g/dL (3.4-5.0); Anion Gap 8.4 mEq/L (5.0-15.0); Bilirubin Total 1.5 mg/dL (0.2-1.0); Globulin 3.8 g/dL (2.3-3.5); Potassium 4.4 mEq/L (3.5-5.1); Protein, Total 7.5 g/dL (6.4-8.2)
[2024-09-08 18:35] LABS: Absolute Basophils 0.1 K/uL (0-0.5); Absolute Eosinophils 0.2 K/uL (0-0.5); Absolute Lymphocytes (CBC) 1.2 K/uL (0.7-4.9); Absolute Monocytes 0.6 K/uL (0.1-1.3); Absolute Neutrophil 5.2 K/uL (1.8-8.0); Basophils % 1.4 % (0-1.3); Eosinophils % 2.2 % (0-4.4); Hematocrit 35.2 % (39.6-49.0); Lymphocytes % 16.5 % (15.3-44.8); MCH 31.2 pg (27.0-35.0); MCHC 34.1 g/dL (32.0-36.0); MCV 91.4 fL (80-100); MPV 9.2 fL (7.6-11.3); Monocytes % 7.9 % (3.3-12.3); Nucleated Red Blood Cells % 0.1 % (0-0); Platelets 122 thou/uL (152-406); RBC Red Blood Cell Count 3.85 M/uL (4.33-5.43); Red Cell Distribution Width 15.2 % (12.1-15.2)
[2024-09-08 19:52] VITALS: BP 125/71; TEMP 97.8; O2SAT 97
== END 2024-09-08 19:06 | disposition short-term general hospital (02) ==
LOC: ER 17:18
DX: S06.6X0A Traumatic subarachnoid hemorrhage without loss of consciousness, initial encounter (principal); W18.30XA Fall on same level, unspecified, initial encounter; Z95.1 Presence of aortocoronary bypass graft; Z95.810 Presence of automatic (implantable) cardiac defibrillator
CPT/HCPCS: 36415; 70450; 80053; 85025; 85610; 85730